=== PATIENT | male | born 1990 | race Caucasian/White ===

== ENCOUNTER 2023-02-16 13:26 | Outpatient (AMB) | payer OTHER, SELFPAY ==
--- NOTE | 2023-02-16 13:28 | MHC.PC.OV ---
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 Intake Note: Patient is a new patient here to establish care Stereotype Molder Required: No Allergies No Known Allergies Allergy (Verified 02/16/23 13:29) Medication List - Last Reconciled 02/16/23 by Ralph Griffin MD esomeprazole magnesium (Nexium) 20 mg PO DAILY Tobacco use date assessed: 02/16/23 Dental Screening Dental Screen Date: 02/16/23 Did you have a dental visit in the last 12 months?: Yes Did you have a dental problem in the last 6 months where you did not have access to dental care?: No Was dental information given to patient?: Patient has dentist HPI 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 [facility] Medical History (Updated 02/16/23 @ 13:56 by Ralph Griffin MD) Scalp laceration Collar bone fracture Surgical History (Updated 02/16/23 @ 13:48 by Ralph Griffin MD) History of facial surgery Family History (Updated 02/16/23 @ 13:50 by Ralph Griffin MD) Father Lung cancer Mother Gallbladder cancer Social History (Updated 02/16/23 @ 13:52 by Ralph Griffin MD) Housing: Apartment Alcohol intake: current Patient Tobacco Use Status: Former Tobacco user Years Smoked: quit 2016 smoker for 8 years 1/2 pack a day service: No Current occupational status: employed Cognitive needs: No Hearing needs: No Vision needs: No Questionnaire Thrive Questionnaire Date Thrive assessed: 02/25/23 I am a: Patient What is your living situation today?: I have a steady place to live Within the past 12 months, did the food you bought not last and you didn't have the money to get more?: Never true Within the past 12 months, did you worry whether your food would run out before you got money to buy more?: Never true Do you have trouble paying for medicines?: No Do you have trouble getting transportation to medical appointments?: No Do you have trouble paying your heating and electricity bill?: No Do you have trouble taking care of your child, family member or friend?: No Do you have trouble with day-to-day activities such as bathing, preparing meals, shopping, managing finances, etc.?: No Are you currently unemployed and looking for a job?: No Are you interested in more education?: No AUDIT C Alcohol Use Questionnaire (AUDIT-C) 1. How often do you have a drink containing alcohol?: Monthly or less 2. How many drinks containing alcohol do you have on a typical day when you are drinking?: 1 or 2 3. How often do you have six or more drinks on one occasion?: Never Total Score: 1 SHAYY-7 AMB Questionnaire SHAYY-7 Date SHAYY - 7 assessed: 02/16/23 Feeling nervous, anxious, or on edge: 0 = Not at all Not being able to stop or control worryin = Not at all Worrying too much about different things: 0 = Not at all Trouble relaxin = Not at all Being so restless that it is hard to sit still: 0 = Not at all Becoming easily annoyed or irritable: 0 = Not at all Feeling afraid as if something awful might happen: 0 = Not at all Total SHAYY-7 score (0-4 normal; 5-9 mild; 10-14 moderate; 15-21 severe): 0 Source: Developed by Drs. Rahul Sidhu, Chioma Weller, Jose Francisco Valencia and colleagues, with an educational jose from [employer]. Review of Systems Const Denies poor appetite and Denies weakness Eyes Denies no additional complaints ENT Reports Normal hearing present, Denies dizziness, Denies nasal congestion, Denies tinnitus and Denies sore throat Card Denies chest pain, Denies syncope, Denies rapid heart rate and Denies dyspnea Resp Denies cough and Denies dyspnea GI Denies change in stool character, Reports constipation, Denies diarrhea, Denies nausea and Denies vomiting Denies dysuria and Denies urinary frequency Neuro Reports Normal hearing present, Denies confusion, Denies dizziness, Denies syncope and Denies weakness Psych Denies confusion Physical exam (Primary Care) Vital Signs: Last Vital Signs Pulse 89 02/16/23 13:29 BP 138/88 02/16/23 13:29 Pulse Ox 99 02/16/23 13:29 Oxygen Delivery Method Room Air 02/16/23 13:29 BMI result Body Mass Index 46.3 Tobacco/Smoking Status: Tobacco use Status Tobacco use date assessed 02/16/23 02/16/23 13:31 Patient Tobacco Use Status Former Tobacco user 02/16/23 13:39 Thrive Assessment: Date of Thrive Assessment Date Thrive assessed 02/25/23 02/16/23 13:31 Const General: No confusion Orientation/consciousness: No confusion HENMT Head: Yes normocephalic Ears: external ears normal and TM's normal bilaterally Face and sinus: Yes normal facial exam Mouth: moist mucous membranes Throat: Yes tonsils normal Eyes Conjunctivae: conjunctivae normal Pupils: Equal, round and reactive pupils present and Pupil accommodation reflex normal Direct Ophthalmoscopy: normal light reflex Neck Neck: No lymphadenopathy Thyroid: Thyroid normal Chest Chest palpation & inspection: normal inspection of the chest Resp Effort & Inspection: normal respiratory effort and no audible wheezes Auscultation: clear to auscultation bilaterally, no crackles, no wheezes and lung sounds not diminished Cardio Rate: regular rate Rhythm: regular rhythm Peripheral pulses: radial pulses present and dorsalis pedis present GI Palpation (GI): no masses Auscultation: normal bowel sounds and normoactive bowel sounds Rectal Exam - Male: Yes deferred Skin General skin exam: no rashes or lesions noted Rashes: no rashes Neuro General: No confusion Cranial nerves: Yes Equal, round and reactive pupils present and Yes Normal hearing present Cognition (Neuro): normal cognition Gait exam (Neuro): Normal gait present Motor exam (neuro): 5/5 motor strength present throughout Deep tendon reflexes (DTR's): Right brachioradialis reflex intensity grade: 2+, Left brachioradialis reflex intensity grade: 2+, Right patellar reflex intensity grade: 2+ and Left patellar reflex intensity grade: 2+ Extrem General: No edema Assessment and Plan Assessment & Plan (1) Annual physical exam: Code(s): Z00.00 - Encounter for general adult medical examination without abnormal findings (2) Obesity: Code(s): E66.9 - Obesity, unspecified Plan: Diet and exercise (3) LFT elevation: Code(s): R79.89 - Other specified abnormal findings of blood chemistry (4) Frequency of micturition: Code(s): R35.0 - Frequency of micturition Orders: Orders Complete Blood Count Auto Diff Today R79.89 - Other specified abnormal findings of blood chemistry Comprehensive Met. Panel Today R79.89 - Other specified abnormal findings of blood chemistry Free T4 (Free Thyroxine) Today R79.89 - Other specified abnormal findings of blood chemistry Lipid Panel Today E78.00 - Pure hypercholesterolemia, unspecified, R79. - Other specified abnormal findings of blood chemistry Hemoglobin A1c Today R35.0 - Frequency of micturition UA w Microscopic Today R35.0 - Frequency of micturition Hepatitis B,C Profile Today R79.89 - Other specified abnormal findings of blood chemistry US abdomen complete Today R79.89 - Other specified abnormal findings of blood chemistry Thyroid Stimulating Hormone Today R79.89 - Other specified abnormal findings of blood chemistry Vitamin B12 and Folate Today R79. - Other specified abnormal findings of blood chemistry Coding Level of Care Code Est Pt Prev Care 18-39y(01600) Diagnoses Annual physical exam Z00.00 Obesity E66.9 LFT elevation R79.89 Frequency of micturition R35.0
[2023-02-16 13:29] VITALS: BP 138/88; PULSE 89; O2SAT 99; BMI 46.3
== END 2023-02-16 14:11 | disposition home or self-care (01) ==
PROVIDERS: PCP Internal Medicine; Visit Provider Internal Medicine
DX: Z00.00 Encounter for general adult medical examination without abnormal findings (principal); E66.9 Obesity, unspecified; R79.89 Other specified abnormal findings of blood chemistry; Z68.42 Body mass index [BMI] 45.0-49.9, adult; R35.0 Frequency of micturition
CPT/HCPCS: 99395

== ENCOUNTER 2023-03-06 09:55 | Outpatient (REF) | payer OTHER, MEDICAID, SELFPAY ==
--- NOTE | ~2023-03-06 | US_ITS ---
EXAMINATION: US ABDOMEN COMPLETE CLINICAL INFORMATION: Other specified abnormal findings of blood chemistry. COMPARISON: None available. TECHNIQUE: Real-time imaging of the abdominal viscera. Technically limited study secondary to body habitus. FINDINGS: PANCREAS: Poorly visualized. ABDOMINAL AORTA: Poorly visualized. INFERIOR VENA CAVA: Visualized portions are normal. LIVER: Increased parenchymal heterogeneity and echogenicity which could be associated with hepatic steatosis or hepatocellular disease and severely limits visualization. Hypoechoic areas within the liver adjacent to the gallbladder may represent areas of focal sparing within a fatty liver. GALLBLADDER: No gallstones. Gallbladder wall thickness of 0.3 cm. COMMON BILE DUCT: Normal in caliber measuring 0.6 cm in diameter. RIGHT KIDNEY: No hydronephrosis. No renal calculi. Limited visualization. The kidney measures 11.1 cm in maximum dimension. LEFT KIDNEY: No hydronephrosis. No renal calculi. Limited visualization. The kidney measures 12.5 cm in maximum dimension. SPLEEN: Normal. The spleen measures 13.0 cm in maximum dimension. FREE FLUID: None. US/US abdomen complete IMPRESSION: Increased parenchymal heterogeneity and echogenicity which could be associated with hepatic steatosis or hepatocellular disease and severely limits visualization. Hypoechoic areas within the liver adjacent to the gallbladder may represent areas of focal sparing within a fatty liver. Severely limited visualization. CT scan or MRI recommended for further evaluation.
[2023-03-06 11:00] LABS: MANUAL DIFF FLAG NO
[2023-03-06 11:22] LABS: Basophils Absolute Auto 0.1 X10*3/uL (0.0-0.2); Basophils Percent Auto 0.8 % (0-2); Eosinophils Absolute Auto 0.1 X10*3/uL (0.0-0.4); Eosinophils Percent Auto 0.8 % (0-4); Hematocrit 45.4 % (42.0-52.0); Hemoglobin 15.8 g/dl (14.0-18.0); Imm Gran Abs Auto 0.01 X10*3/uL (0.00-0.03); Imm Gran Pct Auto 0.1 % (0.0-0.4); Lymphocytes Absolute Auto 2.4 X10*3/uL (1.2-4.9); Lymphocytes Percent Auto 34.2 % (20-40); Mean Corpuscular HGB Conc 34.8 g/dl (31.0-36.0); Mean Corpuscular Hemoglobin 31.4 pg (27.0-33.0); Mean Corpuscular Volume 90.3 fL (80.0-98.0); Mean Platelet Volume 12.1 fL (9.4-12.4); Monocytes Absolute Auto 0.5 X10*3/uL (0.1-1.2); Neutrophils Absolute Auto 4.1 x10*3/uL (2.0-8.3); Neutrophils Percent Auto 57.1 % (45-73); Platelet Count 210 X10*3/uL (160-400); Red Blood Count 5.03 X10*6/uL (4.60-5.80); Red Cell Distribution Width 12.1 % (11.0-16.0); White Blood Count 7.1 X10*3/uL (4.8-10.8)
[2023-03-06 12:07] LABS: Estimated Average Glucose 91 mg/dL; Hemoglobin A1c % 4.8 % (<6.0)
[2023-03-06 12:23] LABS: Alanine Aminotransferase 76 U/L (0-40); Albumin Level 4.5 g/dL (3.5-5.0); Alkaline Phosphatase 62 U/L (39-117); Anion Gap 15 (12-20); Aspartate Amino Transferase 46 U/L (5-37); Bilirubin Total 0.7 mg/dL (0.0-1.0); Blood Urea Nitrogen 12 mg/dL (9-16); Calcium 9.4 mg/dL (8.4-10.2); Carbon Dioxide 24 mmol/L (22-29); Chloride 107 mmol/L (96-108); Cholesterol 110 mg/dL (<200); Estimated Glomerular Filt Rate > 60; Glucose Random 81 mg/dL (60-115); HDL Cholesterol 37 mg/dL (>40); LDL Cholesterol Calculated 63 mg/dL (<100); Potassium 4.3 mmol/L (3.3-5.1); Sodium 142 mmol/L (135-145); Total Protein 7.3 g/dL (6.5-8.0); Triglycerides 52 mg/dL (<150)
[2023-03-06 12:39] LABS: Free T4 (Free Thyroxine) 0.72 ng/dL (0.71-1.85); Thyroid Stimulating Hormone 1.74 uIU/mL (0.32-4.0)
[2023-03-06 12:52] LABS: Vitamin B12 699 pg/mL (200-900)
[2023-03-06 13:57] LABS: Appearance Urine Clear; Color Urine Yellow; Glucose Urine UA Negative (Negative); Leukocyte Esterase Urine Negative (Negative); Nitrite Urine Negative (Negative); Specific Gravity - Urine 1.025 (1.005-1.025); Urine Blood Negative (Negative); Urine Ketones 15 mg/dL (Negative); Urine Protein Negative (Neg-Trace)
[2023-03-06 14:01] LABS: Bacteria Urine None Seen (None Seen); Hyaline Casts Urine 0-2 /LPF (0-2); RBC Urine 0-2 /HPF (0-2); Squamous Epithelial Cell Urine 0-2 /HPF (0-2); WBC Urine 0-5 /HPF (0-5)
[2023-03-09 08:48] LABS: HBS Num1 > 1000.00 mIU/mL (0-7.99); HBc Num1 0.14 S/CO (0.00-0.79); HBsAGNum1 0.38 S/CO (0.00-0.99); Hepatitis B Core Antibody Nonreactive (Nonreactive); Hepatitis B Surface Antigen Negative (Negative); ~HepC Num1 0.07 S/CO (0.00-0.79); ~Hepatitis B Surface Antibody REACTIVE (Nonreactive); ~Hepatitis C Antibody Nonreactive (Nonreactive)
== END 2023-03-06 09:56 | disposition home or self-care (01) ==
LOC: HO.US 09:55
PROVIDERS: PCP Internal Medicine; Visit Provider Internal Medicine
DX: R35.0 Frequency of micturition (principal); R79.89 Other specified abnormal findings of blood chemistry; E78.00 Pure hypercholesterolemia, unspecified
CPT/HCPCS: 36415; 76700; 80053; 80061; 81001; 82607; 82746; 83036; 84439; 84443; 85025; 86704; 86706; 86803; 87340

== ENCOUNTER 2023-03-15 06:28 | Emergency (ER) | payer OTHER, MEDICAID, SELFPAY ==
[2023-03-15 06:30] VITALS: BP 149/96; PULSE 77; RESP 18; TEMP 36.4; O2SAT 98; BMI 46.7
== END 2023-03-15 11:06 | disposition left against medical advice (07) ==
PROVIDERS: Emergency Provider Emergency Medicine
DX: M79.601 Pain in right arm (principal)
CPT/HCPCS: 99281

== ENCOUNTER 2023-06-10 11:01 | Outpatient (AMB) | payer OTHER, SELFPAY ==
[2023-06-10 11:05] VITALS: BP 134/92; PULSE 89; O2SAT 98; BMI 44.6
--- NOTE | 2023-06-10 11:05 | A.OFFPC_ITS ---
Vital Signs 06/10/23 11:05 06/10/23 11:55 Height 5 ft 11 in Weight 320 lb BMI 44.6 BP 134/92 H 120/80 Blood Pressure Location Lt brachial Lt brachial Position Sitting Sitting Pulse 89 Pulse Source Pulse Oximeter Pulse Oximetry (%) 98 Oxygen Delivery Method Room Air Intake Visit Reasons: 3 month f/u Allergies No Known Allergies Allergy (Verified 06/10/23 11:05) Tobacco use date assessed: 06/10/23 Dental Screening Dental Screen Date: 06/10/23 Did you have a dental visit in the last 12 months?: Yes Did you have a dental problem in the last 6 months where you did not have access to dental care?: No Was dental information given to patient?: Patient has dentist HPI 3 month f/u HPI Details 33-year-old obese male with a history of elevated liver function test in frequency coming in for follow-up. Patient was last seen in January 2023. Review of the notes had ultrasound of the abdomen showing hepatic steatosis.. R arm pain since 04/2023, deny fall or trauma- concerned on sleeping in the office . 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 15 lbs [facility] Medical History (Updated 06/10/23 @ 11:45 by Ralph Griffin MD) Scalp laceration Collar bone fracture Surgical History (Updated 02/16/23 @ 13:48 by Ralph Griffin MD) History of facial surgery Family History (Updated 06/10/23 @ 11:06 by Kassandra Rob CMA) Father Lung cancer Mother Gallbladder cancer Social History (Updated 02/16/23 @ 13:52 by Ralph Griffin MD) Housing: Apartment Alcohol intake: current Patient Tobacco Use Status: Former Tobacco user Tobacco use type: Cigarette Years Smoked: quit 2016 smoker for 8 years 1/2 pack a day e-Cigarette/Vaping Use: Never Used Second Hand Smoke Exposure: No service: No Current occupational status: employed Cognitive needs: No Hearing needs: No Vision needs: No Questionnaire PHQ-9 Over the last 2 weeks, how often have you been bothered by any of the following problems? 1. Little interest or pleasure in doing things: not at all 2. Feeling down, depressed, or hopeless: not at all 3. Trouble falling or staying asleep, or sleeping too much: not at all 4. Feeling tired or having little energy: not at all 5. Poor appetite or overeating: not at all 6. Feeling bad about yourself - or that you are a failure or have let yourself or your family down: not at all 7. Trouble concentrating on things, such as reading the newspaper or watching television: not at all 8. Moving or speaking so slowly that other people could have noticed. Or the opposite - being so fidgety or restless that you have been moving around a lot more than usual: not at all 9. Thoughts that you would be better off or of hurting yourself in some way: not at all Total score: 0 Depression Screening Interpretation: Negative Depression Screening Done: Yes Source: Developed by Drs. Rahul Sidhu, Chioma Weller, Jose Francisco Valencia and colleagues, with an educational jose from [employer]. Thrive Questionnaire Date Thrive assessed: 06/10/23 I am a: Patient What is your living situation today?: I have a steady place to live Within the past 12 months, did the food you bought not last and you didn't have the money to get more?: Never true Within the past 12 months, did you worry whether your food would run out before you got money to buy more?: Never true Do you have trouble paying for medicines?: No Do you have trouble getting transportation to medical appointments?: No Do you have trouble paying your heating and electricity bill?: No Do you have trouble taking care of your child, family member or friend?: No Do you have trouble with day-to-day activities such as bathing, preparing meals, shopping, managing finances, etc.?: No Are you currently unemployed and looking for a job?: No Are you interested in more education?: No AUDIT C Alcohol Use Questionnaire (AUDIT-C) 1. How often do you have a drink containing alcohol?: Monthly or less 2. How many drinks containing alcohol do you have on a typical day when you are drinking?: 1 or 2 3. How often do you have six or more drinks on one occasion?: Never Total Score: 1 SHAYY-7 AMB Questionnaire SHAYY-7 Date SHAYY - 7 assessed: 06/10/23 Feeling nervous, anxious, or on edge: 0 = Not at all Not being able to stop or control worryin = Not at all Worrying too much about different things: 0 = Not at all Trouble relaxin = Not at all Being so restless that it is hard to sit still: 0 = Not at all Becoming easily annoyed or irritable: 0 = Not at all Feeling afraid as if something awful might happen: 0 = Not at all Total SHAYY-7 score (0-4 normal; 5-9 mild; 10-14 moderate; 15-21 severe): 0 Source: Developed by Drs. Rahul Sidhu, Chioma Weller, Jose Francisco Valencia and colleagues, with an educational jose from [employer]. Physical exam (Primary Care) Vital Signs: Last Vital Signs Pulse 89 06/10/23 11:05 BP 134/92 H 06/10/23 11:05 Pulse Ox 98 06/10/23 11:05 Oxygen Delivery Method Room Air 06/10/23 11:05 BMI result Body Mass Index 44.6 Tobacco/Smoking Status: Tobacco use Status Tobacco use date assessed 06/10/23 06/10/23 11:11 Patient Tobacco Use Status Former Tobacco user 06/10/23 11:11 Tobacco use type Cigarette 06/10/23 11:11 e-Cigarette/Vaping Use Never Used 06/10/23 11:11 PHQ-9: PHQ-9 Score PHQ-9: Total score 0 06/10/23 11:11 Depression Screening Interpretation: Negative Thrive Assessment: Date of Thrive Assessment Date Thrive assessed 06/10/23 06/10/23 11:11 Const General: alert; No acute distress Eyes Conjunctivae: conjunctivae normal Resp Auscultation: clear to auscultation bilaterally Cardio Rate: regular rate Rhythm: regular rhythm GI Inspection: Yes normal to inspection Extrem General: Yes normal to inspection and No edema Assessment and Plan Assessment & Plan (1) Obesity: Code(s): E66.9 - Obesity, unspecified Plan: Diet and exercise (2) Hepatic steatosis: Code(s): K76.0 - Fatty (change of) liver, not elsewhere classified Plan: Low-fat diet and exercise (3) GERD (gastroesophageal reflux disease): Code(s): K21.9 - Gastro-esophageal reflux disease without esophagitis Plan: Avoid the foods that causes that usually spicy foods, tomato products, juices, coffee, soda and foods that your sensitive to. After eating do not lie down, allow 3-4 hours before in lie down. And keep the head of bed above 30 degrees to avoid the acid from going up. Coding Level of Care Code Est Pt Level 4 (92107) Diagnoses Obesity E66.9 Hepatic steatosis K76.0 GERD (gastroesophageal reflux disease) K21.9
[2023-06-10 11:55] VITALS: BP 120/80
== END 2023-06-10 11:59 | disposition home or self-care (01) ==
PROVIDERS: PCP Internal Medicine; Visit Provider Internal Medicine
DX: K76.0 Fatty (change of) liver, not elsewhere classified (principal); K21.9 Gastro-esophageal reflux disease without esophagitis; E66.9 Obesity, unspecified; Z68.41 Body mass index [BMI] 40.0-44.9, adult
CPT/HCPCS: 99214

== ENCOUNTER 2023-07-29 13:31 | Outpatient (AMB) | payer OTHER, SELFPAY ==
--- NOTE | 2023-07-29 13:48 | MHC.PC.OV ---
Vital Signs 07/29/23 13:50 Height 5 ft 11 in Weight 312 lb 4 oz BMI 43.5 BP 120/80 Blood Pressure Location Lt brachial Position Sitting Pulse 87 Pulse Source Pulse Oximeter Pulse Oximetry (%) 98 Oxygen Delivery Method Room Air Intake Visit Reasons: ear pain,congestion Intake Note: Patient is here today for left ear pain, cough and chest congestion on started 2 days ago. OTC is not help with chest congestion. Appian Bpm Developer Required: No Communications Scientist: Not Required per policy Accompanied by: Self / Same As Patient Allergies No Known Allergies Allergy (Verified 07/29/23 14:17) Medication List - Last Reconciled 07/29/23 by Ruddy Qureshi MD esomeprazole magnesium (Nexium) 20 mg PO DAILY hydroxyzine HCl 50 mg PO BEDTIME PRN Tobacco use date assessed: 07/29/23 Dental Screening Dental Screen Date: 07/29/23 Did you have a dental visit in the last 12 months?: Yes Did you have a dental problem in the last 6 months where you did not have access to dental care?: No Was dental information given to patient?: Patient has dentist HPI ear pain,congestion HPI Details Patient presents for a sick visit. Reporting symptoms of sinus congestion, sore throat and difficulty swallowing. Low-grade fever. No family member is sick. No recent travel. Patient reports symptoms of malaise and fatigue. [facility] Medical History (Updated 06/10/23 @ 11:45 by Ralph Griffin MD) Scalp laceration Collar bone fracture Surgical History History of facial surgery Family History Father Lung cancer Mother Gallbladder cancer Social History Housing: Apartment Alcohol intake: current Patient Tobacco Use Status: Former Tobacco user Tobacco use type: Cigarette Years Smoked: quit 2016 smoker for 8 years 1/2 pack a day e-Cigarette/Vaping Use: Never Used Second Hand Smoke Exposure: No service: No Current occupational status: employed Cognitive needs: No Hearing needs: No Vision needs: No Questionnaire Thrive Questionnaire Date Thrive assessed: 06/10/23 SHAYY-7 AMB Questionnaire SHAYY-7 Date SHAYY - 7 assessed: 06/10/23 Source: Developed by Drs. Rahul Sidhu, Chioma Weller, Jose Francisco Valencia and colleagues, with an educational jose from [email or web address]. Physical exam (Primary Care) Vital Signs: Last Vital Signs Pulse 87 07/29/23 13:50 BP 120/80 07/29/23 13:50 Pulse Ox 98 07/29/23 13:50 Oxygen Delivery Method Room Air 07/29/23 13:50 BMI result Body Mass Index 43.5 Tobacco/Smoking Status: Tobacco use Status Tobacco use date assessed 07/29/23 07/29/23 13:58 Patient Tobacco Use Status Former Tobacco user 07/29/23 13:58 Tobacco use type Cigarette 07/29/23 13:58 e-Cigarette/Vaping Use Never Used 07/29/23 13:58 Thrive Assessment: Date of Thrive Assessment Date Thrive assessed 06/10/23 07/29/23 13:58 Const General: cooperative and healthy appearing Nutritional Appearance: well nourished Orientation/consciousness: patient oriented x3 Limitations: no limitations HENMT Head: Yes normal to inspection Eyes General: appearance normal, both eyes and all related structures Neck Neck: Yes normal visual inspection Chest Chest palpation & inspection: normal palpation of entire chest wall Resp Effort & Inspection: normal respiratory effort Neuro General: patient oriented x3 Assessment and Plan Assessment & Plan (1) Upper respiratory tract infection: Code(s): J06.9 - Acute upper respiratory infection, unspecified Plan: Antibiotics ordered. Increase fluid intake. Tylenol for aches and pains. If symptoms worsen, follow-up here for a recheck. Coding Level of Care Code Est Pt Level 3 (69967) Diagnoses Upper respiratory tract infection J06.9
[2023-07-29 13:50] VITALS: BP 120/80; PULSE 87; O2SAT 98; BMI 43.5
== END 2023-07-29 16:30 | disposition home or self-care (01) ==
PROVIDERS: PCP Internal Medicine; Visit Provider Internal Medicine
DX: J06.9 Acute upper respiratory infection, unspecified (principal)
CPT/HCPCS: 99213

== ENCOUNTER 2023-09-21 13:03 | Outpatient (AMB) | payer OTHER, SELFPAY ==
[2023-09-21 13:05] VITALS: BP 118/72; PULSE 67; O2SAT 98; BMI 43.8
--- NOTE | 2023-09-21 13:05 | MHC.PC.OV ---
Vital Signs 09/21/23 13:05 Height 5 ft 11 in Weight 314 lb BMI 43.8 BP 118/72 Blood Pressure Location Lt brachial Position Sitting Pulse 67 Pulse Source Pulse Oximeter Pulse Oximetry (%) 98 Oxygen Delivery Method Room Air Intake Visit Reasons: stress hives Manager Culture Required: No Allergies No Known Allergies Allergy (Verified 09/21/23 13:05) Tobacco use date assessed: 09/21/23 Dental Screening Dental Screen Date: 07/29/23 HPI stress hives HPI Details 33-year-old obese male with hepatic steatosis in GERD last seen in May 2023 coming in for acute problem. Review of the notes in July 2023 had nasal congestion treated as upper respiratory tract infection. February 2023 last blood work- jun- had bumps thigh , chest arm leg, urgent center was told at [facility]. 2 weeks later- after an argument - had another rash. showed erythematous rash back and arms [facility] Medical History (Updated 09/21/23 @ 13:53 by Ralph Griffin MD) Scalp laceration Collar bone fracture Surgical History History of facial surgery Family History Father Lung cancer Mother Gallbladder cancer Social History Housing: Apartment Alcohol intake: current Patient Tobacco Use Status: Former Tobacco user Tobacco use type: Cigarette Years Smoked: quit 2016 smoker for 8 years 1/2 pack a day e-Cigarette/Vaping Use: Never Used Second Hand Smoke Exposure: No service: No Current occupational status: employed Cognitive needs: No Hearing needs: No Vision needs: No Questionnaire Thrive Questionnaire Date Thrive assessed: 06/10/23 AUDIT C Alcohol Use Questionnaire (AUDIT-C) 1. How often do you have a drink containing alcohol?: Monthly or less 2. How many drinks containing alcohol do you have on a typical day when you are drinking?: 1 or 2 3. How often do you have six or more drinks on one occasion?: Never Total Score: 1 SHAYY-7 AMB Questionnaire SHAYY-7 Date SHAYY - 7 assessed: 06/10/23 Source: Developed by Drs. Rahul Sidhu, Chioma BJose Francisco Galeas and colleagues, with an educational jose from [employer]. Physical exam (Primary Care) Vital Signs: Last Vital Signs Pulse 67 09/21/23 13:05 BP 118/72 09/21/23 13:05 Pulse Ox 98 09/21/23 13:05 Oxygen Delivery Method Room Air 09/21/23 13:05 BMI result Body Mass Index 43.8 Tobacco/Smoking Status: Tobacco use Status Tobacco use date assessed 09/21/23 09/21/23 13:05 Patient Tobacco Use Status Former Tobacco user 09/21/23 13:05 Tobacco use type Cigarette 09/21/23 13:05 e-Cigarette/Vaping Use Never Used 09/21/23 13:05 Thrive Assessment: Date of Thrive Assessment Date Thrive assessed 06/10/23 09/21/23 13:05 Const General: alert; No acute distress Eyes Conjunctivae: conjunctivae normal Resp Auscultation: clear to auscultation bilaterally Cardio Rate: regular rate Rhythm: regular rhythm GI Inspection: Yes normal to inspection Extrem General: Yes normal to inspection and No edema Assessment and Plan Assessment & Plan (1) GERD (gastroesophageal reflux disease): Code(s): K21.9 - Gastro-esophageal reflux disease without esophagitis Plan: Avoid the foods that causes that usually spicy foods, tomato products, juices, coffee, soda and foods that your sensitive to. After eating do not lie down, allow 3-4 hours before in lie down. And keep the head of bed above 30 degrees to avoid the acid from going up. (2) Hepatic steatosis: Code(s): K76.0 - Fatty (change of) liver, not elsewhere classified Plan: Low-fat diet and exercise (3) Obesity: Code(s): E66.9 - Obesity, unspecified Plan: Diet and exercise (4) Urticaria: Code(s): L50.9 - Urticaria, unspecified Plan: dermatology referral and zyrtec sent in - dicussed about drowsiness side effect (5) Hearing deficit: Code(s): H91.90 - Unspecified hearing loss, unspecified ear Plan: advised hearing test Orders: Referrals Dermatology Referral L50.9 - Urticaria, unspecified Speech and Hearing Referral H91.90 - Unspecified hearing loss, unspecified ear Medications: New cetirizine (Zyrtec) 10 mg PO DAILY PRN 30 tabs 3RF allergy symptoms L50.9 - Urticaria, unspecified Coding Level of Care Code Est Pt Level 4 (17942) Diagnoses GERD (gastroesophageal reflux disease) K21.9 Hepatic steatosis K76.0 Obesity E66.9 Urticaria L50.9 Hearing deficit H91.90
== END 2023-09-21 13:55 | disposition home or self-care (01) ==
PROVIDERS: PCP Internal Medicine; Visit Provider Internal Medicine
DX: K21.9 Gastro-esophageal reflux disease without esophagitis (principal); K76.0 Fatty (change of) liver, not elsewhere classified; Z68.41 Body mass index [BMI] 40.0-44.9, adult; E66.9 Obesity, unspecified; L50.9 Urticaria, unspecified
CPT/HCPCS: 99214

== ENCOUNTER 2023-10-13 09:47 | Outpatient (AMB) | payer OTHER, SELFPAY ==
[2023-10-13 09:50] VITALS: BP 134/76; PULSE 80; O2SAT 98; BMI 43.6
--- NOTE | 2023-10-13 09:50 | MHC.PC.OV ---
Vital Signs 10/13/23 09:50 Height 5 ft 11 in Weight 313 lb BMI 43.6 BP 134/76 Blood Pressure Location Lt brachial Position Sitting Pulse 80 Pulse Source Pulse Oximeter Pulse Oximetry (%) 98 Oxygen Delivery Method Room Air Intake Visit Reasons: Shoulder pain Allergies No Known Allergies Allergy (Verified 10/13/23 09:50) Medication List - Last Reconciled 10/13/23 by Ralph Griffin MD cetirizine (Zyrtec) 10 mg PO DAILY PRN esomeprazole magnesium (Nexium) 20 mg PO DAILY hydroxyzine HCl 50 mg PO BEDTIME PRN Tobacco use date assessed: 09/21/23 Dental Screening Dental Screen Date: 07/29/23 HPI HPI Comments History of Present Illness Details 33-YEAR-OLD MORBIDLY OBESE MALE WITH HEPATIC STEATOSIS GERD LAST SEEN 09/21/2023. PATIENT IS ON ACUTE PROBLEM. L shoulder pain hx of fracture 16 years old (2002) has seen ortho 2008 and was told eventually need procedure. Patient continuous and started 6 weeks ago [facility] Medical History (Updated 10/13/23 @ 10:12 by Ralph Griffin MD) Scalp laceration Collar bone fracture Surgical History History of facial surgery Family History Father Lung cancer Mother Gallbladder cancer Social History Housing: Apartment Alcohol intake: current Patient Tobacco Use Status: Former Tobacco user Tobacco use type: Cigarette Years Smoked: quit 2016 smoker for 8 years 1/2 pack a day e-Cigarette/Vaping Use: Never Used Second Hand Smoke Exposure: No service: No Current occupational status: employed Cognitive needs: No Hearing needs: No Vision needs: No Questionnaire PHQ-9 Over the last 2 weeks, how often have you been bothered by any of the following problems? 1. Little interest or pleasure in doing things: not at all 2. Feeling down, depressed, or hopeless: not at all 3. Trouble falling or staying asleep, or sleeping too much: not at all 4. Feeling tired or having little energy: not at all 5. Poor appetite or overeating: not at all 6. Feeling bad about yourself - or that you are a failure or have let yourself or your family down: not at all 7. Trouble concentrating on things, such as reading the newspaper or watching television: not at all 8. Moving or speaking so slowly that other people could have noticed. Or the opposite - being so fidgety or restless that you have been moving around a lot more than usual: not at all 9. Thoughts that you would be better off or of hurting yourself in some way: not at all Total score: 0 Depression Screening Interpretation: Negative Depression Screening Done: Yes Source: Developed by Drs. Rahul Sidhu, Chioma Weller, Jose Francisco Valencia and colleagues, with an educational jose from [employer]. Thrive Questionnaire Date Thrive assessed: 06/10/23 AUDIT C Alcohol Use Questionnaire (AUDIT-C) 1. How often do you have a drink containing alcohol?: Monthly or less 2. How many drinks containing alcohol do you have on a typical day when you are drinking?: 1 or 2 3. How often do you have six or more drinks on one occasion?: Never Total Score: 1 SHAYY-7 AMB Questionnaire SHAYY-7 Date SHAYY - 7 assessed: 06/10/23 Source: Developed by Drs. Rahul Sidhu, Chioma Weller, Jose Francisco Valencia and colleagues, with an educational jose from [employer]. Physical exam (Primary Care) Vital Signs: Last Vital Signs Pulse 80 10/13/23 09:50 BP 134/76 10/13/23 09:50 Pulse Ox 98 10/13/23 09:50 Oxygen Delivery Method Room Air 10/13/23 09:50 BMI result Body Mass Index 43.6 Tobacco/Smoking Status: Tobacco use Status Tobacco use date assessed 09/21/23 10/13/23 09:57 Patient Tobacco Use Status Former Tobacco user 10/13/23 09:57 Tobacco use type Cigarette 10/13/23 09:57 e-Cigarette/Vaping Use Never Used 10/13/23 09:57 PHQ-9: PHQ-9 Score PHQ-9: Total score 0 10/13/23 09:57 Depression Screening Interpretation: Negative Thrive Assessment: Date of Thrive Assessment Date Thrive assessed 06/10/23 10/13/23 09:57 Const General: alert; No acute distress Eyes Conjunctivae: conjunctivae normal Resp Auscultation: clear to auscultation bilaterally Cardio Rate: regular rate Rhythm: regular rhythm GI Inspection: Yes normal to inspection Extrem General: Yes normal to inspection and No edema Assessment and Plan Assessment & Plan (1) Left shoulder pain: Code(s): M25.512 - Pain in left shoulder Plan: xr requested. Patient states has had this problem for multiple years post trauma and has been told the need for surgery. (2) Cough: Code(s): R05.9 - Cough, unspecified Plan: Concern about asthma pulmonary function test requested albuterol inhaler sent , chest xray requested (3) Obesity: Code(s): E66.9 - Obesity, unspecified Plan: diet and exercise Orders: Orders PFT pulmonary function test Today R05.9 - Cough, unspecified XR shoulder LT min 2V Today M25.512 - Pain in left shoulder XR chest 2V Today R05.9 - Cough, unspecified Medications: New albuterol sulfate 90 mcg/actuation (Proventil HFA) 2 puffs inhalation Q4-6H PRN 8.5 grams 0RF Shortness Of Breath J45.909 - Unspecified asthma, uncomplicated, R05.9 - Cough, unspecified Coding Level of Care Code Est Pt Level 4 (25331) Diagnoses Left shoulder pain M25.512 Cough R05.9 Obesity E66.9
== END 2023-10-13 10:20 | disposition home or self-care (01) ==
PROVIDERS: PCP Internal Medicine; Visit Provider Internal Medicine
DX: M25.512 Pain in left shoulder (principal); R05.9 Cough, unspecified; E66.9 Obesity, unspecified; Z68.41 Body mass index [BMI] 40.0-44.9, adult
CPT/HCPCS: 99214

== ENCOUNTER 2023-10-13 10:35 | Outpatient (REF) | payer OTHER, SELFPAY ==
--- NOTE | ~2023-10-13 | XR_ITS ---
EXAMINATION: XR SHOULDER, LEFT CLINICAL INFORMATION: Pain in left shoulder . COMPARISON: None available. TECHNIQUE: AP external rotation, Grashey, scapular Y, and axillary views of the left shoulder. FINDINGS: A 1.4 cm ossicle is noted along the superior aspect of the acromioclavicular joint. Mild degenerative changes in the acromioclavicular joint. Acromioclavicular and glenohumeral alignment is preserved. No abnormal soft tissue calcifications identified adjacent to the humeral head to suggest rotator cuff pathology. XR/XR shoulder LT min 2V IMPRESSION: A 1.4 cm ossicle is noted along the superior aspect of the acromioclavicular joint. Mild degenerative changes in the acromioclavicular joint.
--- NOTE | ~2023-10-13 | XR_ITS ---
EXAMINATION: XR CHEST CLINICAL INFORMATION: Cough unspecified. COMPARISON: None available. TECHNIQUE: 3 views of the chest. FINDINGS: Lung volumes are low. Heart size is normal. There is no gross pneumothorax. No pleural effusion. Mild degenerative changes in the thoracic spine. No focal consolidation to suggest pneumonia. Dextroscoliosis of the thoracic spine. XR/XR chest 2V IMPRESSION: No evidence of pneumonia.
== END 2023-10-13 10:36 | disposition home or self-care (01) ==
LOC: HO.XRAY 10:35
PROVIDERS: PCP Internal Medicine; Visit Provider Internal Medicine
DX: M25.512 Pain in left shoulder (principal); R05.9 Cough, unspecified
CPT/HCPCS: 71046; 73030

== ENCOUNTER 2023-10-30 13:58 | Outpatient (REF) | payer OTHER, SELFPAY | END 2023-10-30 13:59 | disposition home or self-care (01) | LOC: HO.SH 13:58 | PROVIDERS: Visit Provider Internal Medicine | DX: Z01.118 Encounter for examination of ears and hearing with other abnormal findings (principal); H93.293 Other abnormal auditory perceptions, bilateral | CPT/HCPCS: 92557; 92567 ==

== ENCOUNTER 2023-12-21 08:53 | Outpatient (AMB) | payer OTHER, MEDICAID, SELFPAY ==
[2023-12-21 09:00] VITALS: BMI 43.6
--- NOTE | 2023-12-21 09:00 | A.OFFVIS_ITS ---
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 Intake Note: Mansoor is a 33 year old left hand dominant male who presents today for a as a new patient for a evaluation of his left shoulder pain. Hx of a clavicle fx about 16 years ago. Patient reports . He states that he has a lump on the lateral aspect of the shoulder, he was told that is calcium build up. 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 The patient was seen by his PCP on 10/13/23 when he reported the pain began six weeks prior to presentation. He reported being evaluated by an Orthopedic office in 2008 and was told he would ?eventually need surgery?. X-rays were ordered. ? ? Patient reported a history of a clavicle fracture in the left shoulder when he was 16, in 2002.? ? [facility] Medical History (Updated 12/21/23 @ 09:21 by Mariann Ley PA-C) Scalp laceration Collar bone fracture Surgical History History of facial surgery Family History Father Lung cancer Mother Gallbladder cancer Social History (Updated 12/21/23 @ 09:08 by Marco A De La Fuente) Housing: Apartment Alcohol intake: current Alcohol intake frequency: holidays/special occasions only Tobacco use type: Cigarette Years Smoked: quit 2016 smoker for 8 years 1/2 pack a day e-Cigarette/Vaping Use: Never Used Second Hand Smoke Exposure: No service: No Current occupational status: employed 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 No ecchymosis, erythema, or edema. Forward flexion to end rand. Abduction lacking about 40 degrees. Able to reach T-12. External rotation to end range. Pain with cross-body reach. 4/5 strength with empty can. Negative drop arm. NVI. Assessment & Plan Assessment & Plan (1) Painful arc syndrome of left shoulder: Code(s): M75.102 - Unspecified rotator cuff tear or rupture of left shoulder, not specified as traumatic Category: Medical Plan Mr. Mathews is a 33-year-old left hand dominant male who presents in the office today, as a new patient, for an evaluation of left shoulder pain. The patient was seen by his PCP on 10/13/23 when he reported the pain began six weeks prior to presentation. He reported being evaluated by an Orthopedic office in 2008 and was told he would ?eventually need surgery?. X-rays were ordered.? ? Patient reported a history of a clavicle fracture in the left shoulder when he was 16, in 2002.?? ? The patient will be referred for an MRI to further evaluate the integrity of the left shoulder. The patient will call the office once the MRI is obtained. Follow-up will be after the MRI is obtained, or sooner if needed. ? ? X-rays of the left shoulder which were obtained while in the office today and were reviewed by me, Mariann Ley PA-C, revealed chronic distal clavicle fracture with loose body near the AC joint. ? ? X-rays of the left shoulder, obtained on 10/13/23, revealed: ? A 1.4 cm ossicle is noted along the superior aspect of the? acromioclavicular joint. Mild degenerative changes in the? acromioclavicular joint.? Orders: Orders shoulder LT w con Today M75.102 - Unspecified rotator cuff tear or rupture of left shoulder, not specified as traumatic Patient Instructions: Scribed by Krissy Fiore medical technologist, for Mariann Ley PA-C on 12/21/2023 at 8:56 am, EST.? Coding Level of Care Code New Pt Level 4 (11873) Diagnoses Painful arc syndrome of left shoulder M75.102
== END 2023-12-21 10:07 | disposition home or self-care (01) ==
PROVIDERS: PCP Internal Medicine; Visit Provider Physician Assistant
DX: M75.102 Unspecified rotator cuff tear or rupture of left shoulder, not specified as traumatic (principal); S42.002A Fracture of unspecified part of left clavicle, initial encounter for closed fracture
CPT/HCPCS: 99203

== ENCOUNTER → 2023-12-21 08:53 | Outpatient (BNVA) | payer OTHER, SELFPAY | PROVIDERS: PCP Internal Medicine; Visit Provider Physician Assistant ==

== ENCOUNTER 2024-02-18 11:25 | Outpatient (AMB) | payer OTHER, SELFPAY ==
--- NOTE | 2024-02-18 11:26 | A.OFFPC_ITS ---
Vital Signs 02/18/24 11:28 02/18/24 11:50 Height 5 ft 11 in Weight 313 lb BMI 43.6 BP 138/90 H 130/90 H Blood Pressure Location Lt brachial Lt brachial Position Sitting Sitting Intake Visit Reasons: PE Intake Note: Patient here for a physical exam Car Pre Cooler Required: No Accompanied by: Self / Same As Patient Allergies No Known Allergies Allergy (Verified 02/18/24 11:29) Medication List - Last Reconciled 02/18/24 by Ralph Griffin MD albuterol sulfate 90 mcg/actuation (Proventil HFA) 2 puffs inhalation Q4-6H PRN cetirizine (Zyrtec) 10 mg PO DAILY PRN esomeprazole magnesium (Nexium) 20 mg PO DAILY Tobacco use date assessed: 09/21/23 Dental Screening Dental Screen Date: 02/18/24 Did you have a dental visit in the last 12 months?: Yes Did you have a dental problem in the last 6 months where you did not have access to dental care?: No Was dental information given to patient?: Patient has dentist HPI PE HPI Details 33-year-old morbidly obese male with fat ty liver/hepatic steatosis GERD coming in for physical exam last seen in September for left shoulder pain. Patient had left shoulder pain and was sent to orthopedics diagnosis of painful arc syndrome of the left shoulder advised MRI x-rays done showing history of distal clavicular fracture with loose body near the AC joint. With 1.4 cm ossicle in the superior aspect of the acromioclavicular joint, mild degenerative changes in the acromioclavicular joint. hearing problem and was advised to see ENT. Patient had a hearing deficit and was advised to get the ENT referral. 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 [facility] Medical History (Updated 02/18/24 @ 12:08 by Ralph Griffin MD) Obesity LFT elevation Scalp laceration Collar bone fracture Surgical History History of facial surgery Family History Father Lung cancer Mother Gallbladder cancer Social History (Updated 02/18/24 @ 11:57 by Ralph Griffin MD) Housing: Apartment Alcohol intake: current Alcohol intake frequency: holidays/special occasions only Comment: once Q 3 months, 6 months Patient Tobacco Use Status: Former Tobacco user Tobacco use type: Cigarette Years Smoked: quit 2016 smoker for 8 years 1/2 pack a day NO cigarettes 2014. 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 1. Little interest or pleasure in doing things: not at all 2. Feeling down, depressed, or hopeless: not at all 3. Trouble falling or staying asleep, or sleeping too much: not at all 4. Feeling tired or having little energy: not at all 5. Poor appetite or overeating: not at all 6. Feeling bad about yourself - or that you are a failure or have let yourself or your family down: not at all 7. Trouble concentrating on things, such as reading the newspaper or watching television: not at all 8. Moving or speaking so slowly that other people could have noticed. Or the opposite - being so fidgety or restless that you have been moving around a lot more than usual: not at all 9. Thoughts that you would be better off or of hurting yourself in some way: not at all Total score: 0 Depression Screening Interpretation: Negative Depression Screening Done: Yes Source: Developed by Drs. Rahul Sidhu, Chioma Weller, Jose Francisco Valencia and colleagues, with an educational jose from [employer]. Thrive Questionnaire Date Thrive assessed: 02/18/24 I am a: Patient What is your living situation today?: I have a steady place to live Within the past 12 months, did the food you bought not last and you didn't have the money to get more?: Never true Within the past 12 months, did you worry whether your food would run out before you got money to buy more?: Never true Do you have trouble paying for medicines?: No Do you have trouble getting transportation to medical appointments?: No Do you have trouble paying your heating and electricity bill?: No Do you have trouble taking care of your child, family member or friend?: No Do you have trouble with day-to-day activities such as bathing, preparing meals, shopping, managing finances, etc.?: No Are you currently unemployed and looking for a job?: No Are you interested in more education?: No Please select the resources that you would like help with: None Currently or been in a relationship where the following occur: No concerns reported THRIVE Score: 0 AUDIT C Alcohol Use Questionnaire (AUDIT-C) 1. How often do you have a drink containing alcohol?: Monthly or less 2. How many drinks containing alcohol do you have on a typical day when you are drinking?: 3 or 4 3. How often do you have six or more drinks on one occasion?: Never Total Score: 2 SHAYY-7 AMB Questionnaire SHAYY-7 Date SHAYY - 7 assessed: 02/18/24 Feeling nervous, anxious, or on edge: 0 = Not at all Not being able to stop or control worryin = Not at all Worrying too much about different things: 0 = Not at all Trouble relaxin = Not at all Being so restless that it is hard to sit still: 0 = Not at all Becoming easily annoyed or irritable: 0 = Not at all Feeling afraid as if something awful might happen: 0 = Not at all Total SHAYY-7 score (0-4 normal; 5-9 mild; 10-14 moderate; 15-21 severe): 0 Source: Developed by Drs. Rahul Sidhu, Chioma Weller, Jose Francisco Valencia and colleagues, with an educational jose from [employer]. Review of Systems Const Denies poor appetite and Denies weakness Eyes Denies no additional complaints ENT Reports Normal hearing present, Denies dizziness, Denies nasal congestion, Denies tinnitus and Denies sore throat Card Denies chest pain, Denies syncope, Denies rapid heart rate and Denies dyspnea Resp Denies cough and Denies dyspnea GI Denies change in stool character, Reports constipation, Denies diarrhea, Denies nausea and Denies vomiting Denies dysuria and Denies urinary frequency Neuro Reports Normal hearing present, Denies confusion, Denies dizziness, Denies syncope and Denies weakness Psych Denies confusion Physical exam (Primary Care) Vital Signs: Last Vital Signs BP 138/90 H 09/26/24 11:28 BMI result Body Mass Index 43.6 Tobacco/Smoking Status: Tobacco use Status Tobacco use date assessed 09/21/23 02/18/24 11:28 Patient Tobacco Use Status Former Tobacco user 02/18/24 11:33 Tobacco use type Cigarette 02/18/24 11:28 e-Cigarette/Vaping Use Never Used 02/18/24 11:28 PHQ-9: PHQ-9 Score PHQ-9: Total score 0 02/18/24 11:33 Depression Screening Interpretation: Negative Thrive Assessment: Date of Thrive Assessment Date Thrive assessed 02/18/24 02/18/24 11:33 Currently or been in a relationship where the following occur: No concerns reported Const General: No confusion Orientation/consciousness: No confusion HENMT Head: Yes normocephalic Ears: external ears normal and TM's normal bilaterally Face and sinus: Yes normal facial exam Mouth: moist mucous membranes Throat: Yes tonsils normal Eyes Conjunctivae: conjunctivae normal Pupils: Equal, round and reactive pupils present and Pupil accommodation reflex normal Direct Ophthalmoscopy: normal light reflex Neck Neck: No lymphadenopathy Thyroid: Thyroid normal Chest Chest palpation & inspection: normal inspection of the chest Resp Effort & Inspection: normal respiratory effort and no audible wheezes Auscultation: clear to auscultation bilaterally, no crackles, no wheezes and lung sounds not diminished Cardio Rate: regular rate Rhythm: regular rhythm Peripheral pulses: radial pulses present and dorsalis pedis present GI Palpation (GI): no masses Auscultation: normal bowel sounds and normoactive bowel sounds Rectal Exam - Male: Yes deferred Skin General skin exam: no rashes or lesions noted Rashes: no rashes Neuro General: No confusion Cranial nerves: Yes Equal, round and reactive pupils present and Yes Normal hearing present Cognition (Neuro): normal cognition Gait exam (Neuro): Normal gait present Motor exam (neuro): 5/5 motor strength present throughout Deep tendon reflexes (DTR's): Right brachioradialis reflex intensity grade: 2+, Left brachioradialis reflex intensity grade: 2+, Right patellar reflex intensity grade: 2+ and Left patellar reflex intensity grade: 2+ Extrem General: No edema Assessment and Plan Assessment & Plan (1) Annual physical exam: Code(s): Z00.00 - Encounter for general adult medical examination without abnormal findings Plan: Patient is advised to eat healthy, keep well hydrated, keep active and have adequate sleep. (2) Morbid obesity: Code(s): E66.01 - Morbid (severe) obesity due to excess calories Plan: Diet and exercise (3) Hepatic steatosis: Code(s): K76.0 - Fatty (change of) liver, not elsewhere classified Plan: Low-fat diet and exercise (4) Painful arc syndrome of left shoulder: Code(s): M75.102 - Unspecified rotator cuff tear or rupture of left shoulder, not specified as traumatic Plan: Patient was seen by ortho and advised MRI but decline by Insurance (5) GERD (gastroesophageal reflux disease): Code(s): K21.9 - Gastro-esophageal reflux disease without esophagitis Plan: Avoid the foods that causes that usually spicy foods, tomato products, juices, coffee, soda and foods that your sensitive to. After eating do not lie down, allow 3-4 hours before in lie down. And keep the head of bed above 30 degrees to avoid the acid from going up. (6) Blood pressure elevated without history of HTN: Code(s): R03.0 - Elevated blood-pressure reading, without diagnosis of hypertension Plan: monitor BP. admits has not slept and drank celsius (7) Cough: Code(s): R05.9 - Cough, unspecified Plan: PFT testing soon (8) Hearing deficit: Code(s): H91.90 - Unspecified hearing loss, unspecified ear Plan: Patient was advised to be referred to ear nose and throat (9) Hypersomnia: Code(s): G47.10 - Hypersomnia, unspecified Plan: Sleep study requested Orders: Orders RT home sleep study Today G47.10 - Hypersomnia, unspecified Referrals Ear/Nose/Throat Referral H91.90 - Unspecified hearing loss, unspecified ear Coding Level of Care Code Est Pt Prev Care 18-39y(22939) Diagnoses Annual physical exam Z00.00 Morbid obesity E66.01 Hepatic steatosis K76.0 Painful arc syndrome of left shoulder M75.102 GERD (gastroesophageal reflux disease) K21.9 Blood pressure elevated without history of HTN R03.0 Cough R05.9 Hearing deficit H91.90 Hypersomnia G47.10
[2024-02-18 11:28] VITALS: BP 138/90; BMI 43.6
[2024-02-18 11:50] VITALS: BP 130/90
== END 2024-02-18 12:16 | disposition home or self-care (01) ==
PROVIDERS: PCP Internal Medicine; Visit Provider Internal Medicine
DX: Z00.00 Encounter for general adult medical examination without abnormal findings (principal); E66.01 Morbid (severe) obesity due to excess calories; Z68.41 Body mass index [BMI] 40.0-44.9, adult; K76.0 Fatty (change of) liver, not elsewhere classified; M75.102 Unspecified rotator cuff tear or rupture of left shoulder, not specified as traumatic; K21.9 Gastro-esophageal reflux disease without esophagitis; R03.0 Elevated blood-pressure reading, without diagnosis of hypertension; R05.9 Cough, unspecified; H91.90 Unspecified hearing loss, unspecified ear; G47.10 Hypersomnia, unspecified

== ENCOUNTER → 2024-02-18 11:25 | Outpatient (BNVA) | payer OTHER, SELFPAY | PROVIDERS: PCP Internal Medicine; Visit Provider Internal Medicine | DX: Z00.00 Encounter for general adult medical examination without abnormal findings (principal); E66.01 Morbid (severe) obesity due to excess calories; Z68.41 Body mass index [BMI] 40.0-44.9, adult; K76.0 Fatty (change of) liver, not elsewhere classified; M75.102 Unspecified rotator cuff tear or rupture of left shoulder, not specified as traumatic; K21.9 Gastro-esophageal reflux disease without esophagitis; R03.0 Elevated blood-pressure reading, without diagnosis of hypertension; R05.9 Cough, unspecified; H91.90 Unspecified hearing loss, unspecified ear; G47.10 Hypersomnia, unspecified | CPT/HCPCS: 96127 ==

== ENCOUNTER → 2024-03-03 10:01 | Outpatient (BNVA) | payer OTHER, SELFPAY | PROVIDERS: PCP Internal Medicine ==

== ENCOUNTER 2024-03-30 11:00 | Outpatient (RCR) | payer OTHER, MEDICAID, SELFPAY ==
--- NOTE | 2024-02-18 13:53 | MHC.PT.EP ---
[facility] [place] Office [place] Office [place] Office [address] [phone] F: [phone] F: [phone] F: [phone] F: [phone] Physical Therapy Plan of Care Date of Evaluation: 02/18/24 Date of Surgery: Diagnosis: L shoulder pain Assessment: 33 y/o L-hand dominant male referred to PT with unspecified RTC tear or rupture of left shoulder, not specified as traumatic. Of note, he fractured L clavicle in 2005 and received no care for it at the time. He has had progress shoulder pain, decreased ROM and strength since this fracture. Most recent X-ray shows A 1.4 cm ossicle is noted along the superior aspect of the acromioclavicular joint. 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 Examination shows decreased L shoulder ROM, decreased strength, pain, mild atrophy supraspinatus fossa, and decreased pec length. Recommend PT 2x/week for 5-6 weeks to address impairments, implement HEP, and optimize functional mobility. Frequency and Duration: The patient will be seen 2x/week for 6 weeks Short Term Goals: 3 weeks I with HEP Car Washer Goals: 6 weeks I with hEP Demonstrate 120* L shoulder flexion to facilitate reaching overhead Pt will be able to lift > 20# with pain < 3/10 Treatment Plan: Modalities to reduce pain, spasms and effusion. Manual therapy to restore motion and function. Therapeutic exercise to improve strength and flexibility. Neuromuscular re-education for posture and balance. Therapeutic activities to return to functional activities of daily living. Electronically signed by: Mirian Sorto PT Please sign and return to therapist. Thank you for your referral.
--- NOTE | 2024-03-30 11:52 | MHC.PT.DC ---
[facility] [place] Office [place] Office [place] Office [address] [phone] F: [phone] F: [phone] F: [phone] F: [phone] Physical Therapy Discharge Report Diagnosis: L shoulder pain Date of Surgery: Date of Evaluation: 02/18/24 Date of Discharge: 03/30/24 Treatments to Date: 12 Cancellations to Date: 0 No Shows to Date: 0 Discharge Status: Independent with HEP Recommend MD Follow-up Discharge Summary: He continues to reports intermittent sharp L shoulder pain and occasional elbow pain with daily activities. ROM has improved however strength and functional mobility still limited. External rotation continues to be most limited in regards to strength. SPADI 59/80 (IR 51/80) He is I with HEP and recommend pt f/u with MD regarding continued pain. He sees MD 04/05. D/c at this time Electronically signed by: Mirian Sorto PT Please sign and return to therapist. Thank you for your referral.
== END 2024-03-30 11:53 | disposition home or self-care (01) ==
LOC: HO.PT 11:00
PROVIDERS: PCP Internal Medicine; Visit Provider Physician Assistant
DX: M75.102 Unspecified rotator cuff tear or rupture of left shoulder, not specified as traumatic (principal)
CPT/HCPCS: 97110; 97161; 97530

== ENCOUNTER 2024-03-31 09:53 | Outpatient (REF) | payer OTHER, SELFPAY ==
--- NOTE | 2024-03-31 09:57 | PFT_ITS ---
Flows: FEV1: 108 % of predicted at 4.54 L FVC: 102 % of predicted at 5.25 L FEV1/FVC: 86 % Bronchodilator response: Absent Volumes: Total lung capacity: 94 % of predicted at 6.47 L Residual volume: 79 % of predicted at 1.19 L Slow vital capacity: 97 % of predicted at 5.28 L Expiratory reserve volume: 27 % of predicted at 0.43 L Diffusion capacity: Normal Impression: No obstructive or restrictive ventilatory defect. Decreased expiratory reserve volume suggests extrathoracic restriction likely secondary to abdominal obesity. MTDD
[2024-03-31 15:41] VITALS: PULSE 73; RESP 16; O2SAT 98
== END 2024-03-31 09:54 | disposition home or self-care (01) ==
LOC: HO.RESP 09:53
PROVIDERS: PCP Internal Medicine; Visit Provider Internal Medicine
DX: R05.9 Cough, unspecified (principal)
CPT/HCPCS: 94010; 94640; 94727; 94729

== ENCOUNTER → 2024-03-31 09:57 | Outpatient (BNV) | payer OTHER, SELFPAY | PROVIDERS: PCP Internal Medicine; Visit Provider Internal Medicine Pulmonary Disease | DX: R05.9 Cough, unspecified (principal) | CPT/HCPCS: 94060; 94727; 94729 ==

== ENCOUNTER → 2024-04-04 12:43 | Outpatient (REF) | payer OTHER, SELFPAY | LOC: HO.SL 12:43 | PROVIDERS: PCP Internal Medicine; Visit Provider Internal Medicine | DX: G47.10 Hypersomnia, unspecified (principal) | CPT/HCPCS: 95806 ==

== ENCOUNTER → 2024-04-04 12:56 | Outpatient (BNV) | payer OTHER, SELFPAY | PROVIDERS: PCP Internal Medicine; Visit Provider Internal Medicine | DX: G47.33 Obstructive sleep apnea (adult) (pediatric) (principal) | CPT/HCPCS: 95806 ==

== ENCOUNTER 2024-04-05 08:40 | Outpatient (AMB) | payer OTHER, SELFPAY ==
[2024-04-05 08:41] VITALS: BP 148/90; PULSE 67; O2SAT 98; BMI 44.5
--- NOTE | 2024-04-05 08:41 | A.OFFPC_ITS ---
Vital Signs 04/05/24 08:41 Height 5 ft 11 in Weight 319 lb BMI 44.5 BP 148/90 H Blood Pressure Location Rt brachial Position Sitting Pulse 67 Pulse Source Pulse Oximeter Pulse Oximetry (%) 98 Oxygen Delivery Method Room Air Intake Visit Reasons: Vasectomy Multineedle Shirrer Required: No Allergies No Known Allergies Allergy (Verified 04/05/24 08:52) Medication List - Last Reconciled 04/05/24 by Destiny Fleming PA-C albuterol sulfate 90 mcg/actuation (Proventil HFA) 2 puffs inhalation Q4-6H PRN cetirizine (Zyrtec) 10 mg PO DAILY PRN esomeprazole magnesium (Nexium) 20 mg PO DAILY Tobacco use date assessed: 09/21/23 Dental Screening Dental Screen Date: 02/18/24 HPI Vasectomy HPI Details 34-year-old morbidly obese male with fat ty liver/hepatic steatosis GERD coming in for acute problem. Patient has been having left shoulder pain for several years starting after an injury in his 20s. He states he has been having a lot of pain in the left shoulder she believes to be responsible for the elevation in blood pressure. He is here for referral for vasectomy. [facility] Medical History (Updated 04/05/24 @ 09:00 by Destiny Fleming PA-C) Obesity LFT elevation Scalp laceration Collar bone fracture Surgical History History of facial surgery Family History Father Lung cancer Mother Gallbladder cancer Social History (Updated 02/18/24 @ 11:57 by Ralph Griffin MD) Housing: Apartment Alcohol intake: current Alcohol intake frequency: holidays/special occasions only Comment: once Q 3 months, 6 months Patient Tobacco Use Status: Former Tobacco user Tobacco use type: Cigarette Years Smoked: quit 2016 smoker for 8 years 1/2 pack a day NO cigarettes 2014. 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 Current occupational exposures/hazards: No Cognitive needs: No Hearing needs: No Vision needs: No Questionnaire Thrive Questionnaire Date Thrive assessed: 02/18/24 I am a: Patient What is your living situation today?: I have a steady place to live Within the past 12 months, did the food you bought not last and you didn't have the money to get more?: Never true Within the past 12 months, did you worry whether your food would run out before you got money to buy more?: Never true Do you have trouble paying for medicines?: No Do you have trouble getting transportation to medical appointments?: No Do you have trouble paying your heating and electricity bill?: No Do you have trouble taking care of your child, family member or friend?: No Do you have trouble with day-to-day activities such as bathing, preparing meals, shopping, managing finances, etc.?: No Are you currently unemployed and looking for a job?: No Are you interested in more education?: No Please select the resources that you would like help with: None Currently or been in a relationship where the following occur: No concerns reported THRIVE Score: 0 AUDIT C Alcohol Use Questionnaire (AUDIT-C) 1. How often do you have a drink containing alcohol?: Monthly or less 2. How many drinks containing alcohol do you have on a typical day when you are drinking?: 3 or 4 3. How often do you have six or more drinks on one occasion?: Never Total Score: 2 SHAYY-7 AMB Questionnaire SHAYY-7 Date SHAYY - 7 assessed: 02/18/24 Source: Developed by Drs. Rahul Sidhu, Chioma Weller, Jose Francisco Valencia and colleagues, with an educational jose from [employer]. Review of Systems Const Denies chills and Denies fever(s) Eyes Reports no additional complaints ENT Reports no additional complaints Card Denies chest pain and Denies dyspnea Resp Denies dyspnea GI Reports no additional complaints Reports no additional complaints Musc Details: Left shoulder pain Physical exam (Primary Care) Vital Signs: Last Vital Signs Pulse 67 04/05/24 08:41 BP 148/90 H 04/05/24 08:41 Pulse Ox 98 04/05/24 08:41 Oxygen Delivery Method Room Air 04/05/24 08:41 BMI result Body Mass Index 44.5 Tobacco/Smoking Status: Tobacco use Status Tobacco use date assessed 09/21/23 04/05/24 08:42 Patient Tobacco Use Status Former Tobacco user 04/05/24 08:42 Tobacco use type Cigarette 04/05/24 08:42 e-Cigarette/Vaping Use Never Used 04/05/24 08:42 Thrive Assessment: Date of Thrive Assessment Date Thrive assessed 02/18/24 04/05/24 08:42 Currently or been in a relationship where the following occur: No concerns reported Const General: cooperative, healthy appearing, comfortable and no acute distress Orientation/consciousness: patient oriented x3 HENMT Head: Yes normocephalic Ears: hearing grossly normal bilaterally General nose exam: Normal external nose present Eyes General: appearance normal, both eyes and all related structures Conjunctivae: conjunctivae normal Neck Neck: Yes full ROM and Yes no lymphadenopathy Resp Effort & Inspection: normal respiratory effort Auscultation: clear to auscultation bilaterally, no crackles, no rales, no rhonchi and no wheezes Cardio Rate: regular rate Rhythm: regular rhythm Skin General skin exam: no rashes or lesions noted Neuro General: patient oriented x3 Gait exam (Neuro): Normal gait present Extrem General: Yes normal to inspection, Yes full ROM and No edema Psych Affect: normal affect Attitude: cooperative Insight: Good insight present (Psych) Judgement: Good judgement present (Psych) Coding Level of Care Code Est Pt Level 3 (17167) Diagnoses Vasectomy evaluation Z30.09 Blood pressure elevated without history of HTN R03.0 Morbid obesity E66.01 Assessment & Plan Assessment & Plan (1) Vasectomy evaluation: Code(s): Z30.09 - Encounter for other general counseling and advice on contraception Category: Medical Plan: Patient understands the risks of the procedure. Discussed with patient the blood pressure and blood sugars need to be under good control prior to the procedure. Referral placed to Urology. (2) Blood pressure elevated without history of HTN: Code(s): R03.0 - Elevated blood-pressure reading, without diagnosis of hypertension Category: Medical Plan: Blood pressure elevated on exam and when retaken. Advised patient to take blood pressures at home and keep a log to bring to next appointment. If blood pressures are persistently over 140/90 reach out to the office for earlier appointment. Reviewed red flag symptoms of elevated blood pressure and when to present for re-evaluation. (3) Morbid obesity: Code(s): E66.01 - Morbid (severe) obesity due to excess calories Category: Medical Plan: Healthy diet and regular exercise is encouraged. Plan This note was constructed using voice recognition software. While every effort has been made to ensure accuracy and hot iron worker, still areas may have been included sometimes these areas may affect the content or meeting of the given symptoms. Total time spent caring for the patient today was 20 minutes. This includes time spent before the visit reviewing the chart, time spent during the visit, and time spent after the visit and documentation. Orders: Referrals Urology Referral Z30.09 - Encounter for other general counseling and advice on contraception
== END 2024-04-05 09:18 | disposition home or self-care (01) ==
PROVIDERS: PCP Internal Medicine
DX: R03.0 Elevated blood-pressure reading, without diagnosis of hypertension (principal); E66.01 Morbid (severe) obesity due to excess calories; Z68.41 Body mass index [BMI] 40.0-44.9, adult; Z30.09 Encounter for other general counseling and advice on contraception

== ENCOUNTER 2024-04-13 15:37 | Outpatient (AMB) | payer OTHER, MEDICAID, SELFPAY ==
--- NOTE | 2024-04-13 15:41 | A.OFFPC_ITS ---
Vital Signs 04/13/24 15:42 Height 5 ft 11 in Weight 318 lb 2 oz BMI 44.4 BP 150/100 H Blood Pressure Location Rt brachial Position Sitting Pulse 97 Pulse Source Pulse Oximeter Pulse Oximetry (%) 95 Oxygen Delivery Method Room Air Intake Visit Reasons: Pain on left shoulder, elevated BP Intake Note: Patient is here to follow up on Pain on left shoulder, Elevated BP. Manager Special Events Required: No Administrative Operations Coordinator: Present Accompanied by: Child Allergies No Known Allergies Allergy (Verified 04/13/24 15:42) Tobacco use date assessed: 04/13/24 Dental Screening Dental Screen Date: 02/18/24 HPI Pain on left shoulder, elevated BP HPI Details 34-year-old male presents to the office for a sick visit. Patient has symptoms of left shoulder pain which has been aggravated after physical therapy. He has already seen orthopedics and is frustrated that his insurance is not covering the MRI yet. The shoulder pain is aggravating and his blood pressure is elevated in the last visit. He works in the [employer] services and is not able to afford to take any leave. [facility] Medical History (Updated 04/05/24 @ 09:00 by Destiny Fleming PA-C) Obesity LFT elevation Scalp laceration Collar bone fracture Surgical History History of facial surgery Family History Father Lung cancer Mother Gallbladder cancer Social History Housing: Apartment Alcohol intake: current Alcohol intake frequency: holidays/special occasions only Comment: once Q 3 months, 6 months Patient Tobacco Use Status: Former Tobacco user Tobacco use type: Cigarette Years Smoked: quit 2016 smoker for 8 years 1/2 pack a day NO cigarettes 2014. 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 Current occupational exposures/hazards: No Cognitive needs: No Hearing needs: No Vision needs: No Questionnaire Thrive Questionnaire Date Thrive assessed: 02/18/24 I am a: Patient What is your living situation today?: I have a steady place to live Within the past 12 months, did the food you bought not last and you didn't have the money to get more?: Never true Within the past 12 months, did you worry whether your food would run out before you got money to buy more?: Never true Do you have trouble paying for medicines?: No Do you have trouble getting transportation to medical appointments?: No Do you have trouble paying your heating and electricity bill?: No Do you have trouble taking care of your child, family member or friend?: No Do you have trouble with day-to-day activities such as bathing, preparing meals, shopping, managing finances, etc.?: No Are you currently unemployed and looking for a job?: No Are you interested in more education?: No Please select the resources that you would like help with: None Currently or been in a relationship where the following occur: No concerns reported THRIVE Score: 0 SHAYY-7 AMB Questionnaire SHAYY-7 Date SHAYY - 7 assessed: 02/18/24 Source: Developed by Drs. Rahul Sidhu, Chioma Weller, Jose Francisco Valencia and colleagues, with an educational jose from [employer]. Physical exam (Primary Care) Vital Signs: Last Vital Signs Pulse 97 04/13/24 15:42 BP 150/100 H 04/13/24 15:42 Pulse Ox 95 04/13/24 15:42 Oxygen Delivery Method Room Air 04/13/24 15:42 BMI result Body Mass Index 44.4 Tobacco/Smoking Status: Tobacco use Status Tobacco use date assessed 04/13/24 04/13/24 15:59 Patient Tobacco Use Status Former Tobacco user 04/13/24 15:59 Tobacco use type Cigarette 04/13/24 15:59 e-Cigarette/Vaping Use Never Used 04/13/24 15:59 Thrive Assessment: Date of Thrive Assessment Date Thrive assessed 02/18/24 04/13/24 15:59 Currently or been in a relationship where the following occur: No concerns reported Extrem Other: Right shoulder: limited range of motion. Coding Level of Care Code Est Pt Level 3 (64002) Complex EM visit Add On G2211 Diagnoses Left shoulder strain S46.912A Assessment & Plan Assessment & Plan (1) Left shoulder strain: Code(s): S46.912A - Strain of unspecified muscle, fascia and tendon at shoulder and upper arm level, left arm, initial encounter Plan: Motrin for pain called in. Patient cannot wear a sling at work. A note to ortho has been sent regarding the MRI. Lisinopril called in Medications: New ibuprofen 800 mg PO TID 90 tabs 1RF lisinopril 10 mg PO DAILY 90 tabs 1RF
[2024-04-13 15:42] VITALS: BP 150/100; PULSE 97; O2SAT 95; BMI 44.4
== END 2024-04-13 16:18 | disposition home or self-care (01) ==
PROVIDERS: PCP Internal Medicine; Visit Provider Internal Medicine
DX: S46.912A Strain of unspecified muscle, fascia and tendon at shoulder and upper arm level, left arm, initial encounter (principal)

== ENCOUNTER 2024-04-14 16:45 | Outpatient (REF) | payer OTHER, MEDICAID, SELFPAY ==
--- NOTE | ~2024-04-14 | MR_ITS ---
EXAMINATION: MR SHOULDER WITHOUT CONTRAST, LEFT CLINICAL INFORMATION: Rotator cuff tear. Rupture of left shoulder. COMPARISON: X-ray of the left shoulder 10/13/2023. TECHNIQUE: MRI of the shoulder without contrast was performed on a high-field scanner. FINDINGS: ROTATOR CUFF: Supraspinatus: There is a small focal area of ill-defined increased signal along the insertion of the anterior tendon compatible with focal tendinosis or small partial tear involving the intrasubstance and bursal side of the tendon. No clearly measurable defect or tendon retraction. Muscle normal. Remaining rotator cuff muscles and tendons are normal. BICEPS: Normal. CORACOACROMIAL ARCH: The undersurface of the acromion is curved with no subacromial spur. Ossification embedded in the superior capsule of the AC joint perhaps related to old ligamentous tear/trauma. Joint otherwise unremarkable. BURSA: Normal. LABRUM/CAPSULE: Normal. GLENOHUMERAL JOINT/MARROW: Normal. MR/MR shoulder LT wo con IMPRESSION: Focal tendinosis versus small ill-defined partial tear of the insertion of the anterior supraspinatus tendon. Electronically signed by: Enrique Moss MD 04/25/2024 05:41 PM AGUSTÍN
== END 2024-04-14 16:46 | disposition home or self-care (01) ==
LOC: HO.MRI 16:45
PROVIDERS: PCP Internal Medicine; Visit Provider Physician Assistant
DX: M75.102 Unspecified rotator cuff tear or rupture of left shoulder, not specified as traumatic (principal)
CPT/HCPCS: 73221

== ENCOUNTER 2024-04-28 10:01 | Outpatient (AMB) | payer OTHER, MEDICAID, SELFPAY ==
--- NOTE | 2024-04-28 10:03 | MHC.OFFVIS ---
Intake Visit Reasons: OV - Left shoulder MRI review Intake Note: Mansoor is a 34 year old male who presents today for a MRI review of his left shoulder. MRI was done on 04/14/24. Patient reports he was rushing to get here and he was shoveling so he doesn't really feel his pain at the moment. Allergies No Known Allergies Allergy (Verified 04/28/24 10:05) HPI HPI OV - Left shoulder MRI review: Details: 34-year-old left-hand dominant male who presents in the office today for a follow-up of left shoulder pain. I last saw the patient in the office on 12/21/23 when an MRI of the left shoulder was ordered. While in the office today, The patient reports he was shoveling then rushed to the clinic for today?s appointment. So, he denies feeling any pain in the left shoulder currently. The patient reported a history of a clavicle fracture in the left shoulder when he was 16, in 2002. [facility] Medical History (Updated 04/05/24 @ 09:00 by Destiny Fleming PA-C) Obesity LFT elevation Scalp laceration Collar bone fracture Surgical History History of facial surgery Family History Father Lung cancer Mother Gallbladder cancer Social History Housing: Apartment Alcohol intake: current Alcohol intake frequency: holidays/special occasions only Comment: once Q 3 months, 6 months Patient Tobacco Use Status: Former Tobacco user Tobacco use type: Cigarette Years Smoked: quit 2016 smoker for 8 years 1/2 pack a day NO cigarettes 2014. 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 Current occupational exposures/hazards: No Cognitive needs: No Hearing needs: No Vision needs: No Review of Systems Const All systems reviewed & are unremarkable except as noted in HPI and below Physical Exam Const General: cooperative, healthy appearing and no acute distress Orientation/consciousness: patient oriented x3 Resp Effort & Inspection: normal respiratory effort and able to speak in complete sentences Cardio Rate: regular rate Peripheral pulses: Peripheral pulses 2+ throughout GI Palpation (GI): Soft to palpation Skin General skin exam: no rashes or lesions noted Lesions: no lesions Rashes: no rashes Neuro General: patient oriented x3 Extrem Other: Left shoulder: Normal to inspection. No ecchymosis, erythema, or edema. Forward flexion to end rand. Abduction lacking about 40 degrees. Able to reach T-12. External rotation to end range. Pain with cross-body reach. 4/5 strength with empty can. Negative drop arm. NVI. Assessment & Plan Assessment & Plan (1) Painful arc syndrome of left shoulder: Code(s): M75.102 - Unspecified rotator cuff tear or rupture of left shoulder, not specified as traumatic Category: Medical Plan Mr. Mathews is a 34-year-old left-hand dominant male who presents in the office today for a follow-up of left shoulder pain. I last saw the patient in the office on 12/21/23 when an MRI of the left shoulder was ordered. While in the office today, The patient reports he was shoveling then rushed to the clinic for today?s appointment. So, he denies feeling any pain in the left shoulder currently. The patient reported a history of a clavicle fracture in the left shoulder when he was 16, in 2002. Dr. Reed was available to speak with me and the patient and perform a physical exam while in the office today and a collaborative treatment plan was made. The patient has elected to proceed with a left shoulder rotator cuff repair. I discussed in detail the procedure and what to expect pre and post operatively. We discussed the risks, benefits and alternatives to the surgery and the rehabilitation course. The risks include infection, bleeding, nerve injury, ongoing pain, swelling, and stiffness, perioperative risk of injury to bones and soft tissues, and blood clots. I have answered all questions and with their understanding they have consented to move forward with a left shoulder rotator cuff repair. A booking sheet was provided to the surgical schedulers, Ms. Paez, who will reach out to the patient. Follow-up will be post-op, or sooner if needed. MRI of the left shoulder, obtained on 04/14/24, revealed: Focal tendinosis versus small ill-defined partial tear of the insertion of the anterior supraspinatus tendon. Patient Instructions: Scribed by Candelaria Thippeswamy, medical artist, for Mariann Jil ARTHUR on 04/28/24 at 10:22 am EST. Coding Level of Care Code Est Pt Level 4 (85061) Diagnoses Painful arc syndrome of left shoulder M75.102
== END 2024-04-28 10:35 | disposition home or self-care (01) ==
PROVIDERS: PCP Internal Medicine; Visit Provider Physician Assistant
DX: M75.102 Unspecified rotator cuff tear or rupture of left shoulder, not specified as traumatic (principal)
CPT/HCPCS: 99214

== ENCOUNTER 2024-05-11 14:09 | Outpatient (AMB) | payer OTHER, SELFPAY ==
[2024-05-11 14:12] VITALS: BP 126/80; PULSE 86; O2SAT 96; BMI 44.8
--- NOTE | 2024-05-11 14:12 | A.OFFPC_ITS ---
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 Accompanied by: Self / Same As Patient Allergies No Known Allergies Allergy (Verified 05/11/24 14:12) Medication List - Last Reconciled 05/11/24 by Destiny Fleming PA-C albuterol sulfate 90 mcg/actuation (Proventil HFA) 2 puffs inhalation Q4-6H PRN cetirizine (Zyrtec) 10 mg PO DAILY PRN esomeprazole magnesium (Nexium) 20 mg PO DAILY ibuprofen 800 mg PO TID lisinopril 10 mg PO DAILY Tobacco use date assessed: 05/11/24 Dental Screening Dental Screen Date: 05/11/24 Did you have a dental visit in the last 12 months?: Yes Did you have a dental problem in the last 6 months where you did not have access to dental care?: No Was dental information given to patient?: Patient has dentist HPI left ear swollen HPI Details 34-year-old morbidly obese male with fat ty liver/hepatic steatosis GERD coming in for acute problem. Patient states he was cleaning his ears on Thursday when he felt a sudden pop sensation in the left ear without pain or bleeding. Denies any discharge from the ear that time. He went to urgent care on Thursday and was given a combination steroid/antibiotic ear drop and has been using that was advised to use that for 14 days. Today he tells us he continues to have decreased hearing in the left ear has been continually cleaning wax out of the ear without discharge or blood. Denies any pain in the ear. [facility] Medical History (Updated 05/11/24 @ 14:42 by Destiny Fleming PA-C) Obesity LFT elevation Scalp laceration Collar bone fracture Surgical History History of facial surgery Family History Father Lung cancer Mother Gallbladder cancer Social History Housing: Apartment Alcohol intake: current Alcohol intake frequency: holidays/special occasions only Comment: once Q 3 months, 6 months Patient Tobacco Use Status: Former Tobacco user Tobacco use type: Cigarette Years Smoked: quit 2016 smoker for 8 years 1/2 pack a day NO cigarettes 2014. 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 1. Little interest or pleasure in doing things: not at all 2. Feeling down, depressed, or hopeless: not at all 3. Trouble falling or staying asleep, or sleeping too much: not at all 4. Feeling tired or having little energy: not at all 5. Poor appetite or overeating: not at all 6. Feeling bad about yourself - or that you are a failure or have let yourself or your family down: not at all 7. Trouble concentrating on things, such as reading the newspaper or watching television: not at all 8. Moving or speaking so slowly that other people could have noticed. Or the opposite - being so fidgety or restless that you have been moving around a lot more than usual: not at all 9. Thoughts that you would be better off or of hurting yourself in some way: not at all Total score: 0 Depression Screening Interpretation: Negative Depression Screening Done: Yes Source: Developed by Drs. Rahul Sidhu, Chioma Weller, Jose Francisco Valencia and colleagues, with an educational jose from [employer]. Thrive Questionnaire Date Thrive assessed: 05/11/24 I am a: Patient What is your living situation today?: I have a steady place to live Within the past 12 months, did the food you bought not last and you didn't have the money to get more?: Never true Within the past 12 months, did you worry whether your food would run out before you got money to buy more?: Never true Do you have trouble paying for medicines?: No Do you have trouble getting transportation to medical appointments?: No Do you have trouble paying your heating and electricity bill?: No Do you have trouble taking care of your child, family member or friend?: No Do you have trouble with day-to-day activities such as bathing, preparing meals, shopping, managing finances, etc.?: No Are you currently unemployed and looking for a job?: No Are you interested in more education?: No Please select the resources that you would like help with: None Currently or been in a relationship where the following occur: No concerns reported THRIVE Score: 0 AUDIT C Alcohol Use Questionnaire (AUDIT-C) 1. How often do you have a drink containing alcohol?: Monthly or less 2. How many drinks containing alcohol do you have on a typical day when you are drinking?: 3 or 4 3. How often do you have six or more drinks on one occasion?: Never Total Score: 2 SHAYY-7 AMB Questionnaire SHAYY-7 Date SHAYY - 7 assessed: 05/11/24 Feeling nervous, anxious, or on edge: 0 = Not at all Not being able to stop or control worryin = Not at all Worrying too much about different things: 0 = Not at all Trouble relaxin = Not at all Being so restless that it is hard to sit still: 0 = Not at all Becoming easily annoyed or irritable: 0 = Not at all Feeling afraid as if something awful might happen: 0 = Not at all Total SHAYY-7 score (0-4 normal; 5-9 mild; 10-14 moderate; 15-21 severe): 0 Source: Developed by Drs. Rahul Sidhu, Chioma Weller, Jose Francisco Valencia and colleagues, with an educational jose from [employer]. Review of Systems Const Denies body aches, Denies chills, Denies fever(s), Denies headache(s) and Denies poor appetite Eyes Reports no additional complaints ENT Denies dizziness and Denies headache(s) Card Denies chest pain, Denies syncope, Denies edema, Denies irregular heart rhythm, Denies lightheadedness and Denies dyspnea Resp Denies cough and Denies dyspnea GI Denies abdominal pain, Denies constipation, Denies diarrhea, Denies nausea and Denies vomiting Reports no additional complaints Musc Reports no additional complaints and Denies abnormal gait Skin/Breast Reports system reviewed and no additional complaints, except as documented Neuro Denies abnormal gait, Denies dizziness, Denies syncope and Denies headache(s) Psych Reports no additional complaints Physical exam (Primary Care) Vital Signs: Last Vital Signs Pulse 86 05/11/24 14:12 BP 126/80 05/11/24 14:12 Pulse Ox 96 05/11/24 14:12 Oxygen Delivery Method Room Air 05/11/24 14:12 BMI result Body Mass Index 44.8 Tobacco/Smoking Status: Tobacco use Status Tobacco use date assessed 05/11/24 05/11/24 14:14 Patient Tobacco Use Status Former Tobacco user 05/11/24 14:13 Tobacco use type Cigarette 05/11/24 14:13 e-Cigarette/Vaping Use Never Used 05/11/24 14:13 PHQ-9: PHQ-9 Score PHQ-9: Total score 0 05/11/24 14:24 Depression Screening Interpretation: Negative Thrive Assessment: Date of Thrive Assessment Date Thrive assessed 05/11/24 05/11/24 14:14 Currently or been in a relationship where the following occur: No concerns reported Const General: cooperative, healthy appearing, comfortable and no acute distress Orientation/consciousness: patient oriented x3 HENMT Other: Left ear canal is erythematous with friable tissue and purulent discharge. Left TM shows purulent fluid behind the drum. Right ear canal erythematous and irritated without drainage and TM normal. Head: Yes normocephalic Ears: hearing grossly normal bilaterally General nose exam: Normal external nose present Eyes General: appearance normal, both eyes and all related structures Conjunctivae: conjunctivae normal Neck Neck: Yes full ROM and Yes no lymphadenopathy Resp Effort & Inspection: normal respiratory effort Auscultation: clear to auscultation bilaterally, no crackles, no rales, no rhonchi and no wheezes Cardio Rate: regular rate Rhythm: regular rhythm Skin General skin exam: no rashes or lesions noted Neuro General: patient oriented x3 Gait exam (Neuro): Normal gait present Extrem General: Yes normal to inspection, Yes full ROM and No edema Psych Affect: normal affect Attitude: cooperative Insight: Good insight present (Psych) Judgement: Good judgement present (Psych) Coding Level of Care Code Est Pt Level 3 (73392) Diagnoses Morbid obesity E66.01 Hypertension I10 Otitis media H66.90 Otitis externa H60.90 Assessment & Plan Assessment & Plan (1) Morbid obesity: Code(s): E66.01 - Morbid (severe) obesity due to excess calories Category: Medical Plan: Healthy diet and regular exercise is encouraged. (2) Hypertension: Code(s): I10 - Essential (primary) hypertension Category: Medical Plan: Continue on current blood pressure medication. Avoid salt intake and encourage healthy diet and regular exercise. Blood pressure at goal today with the use of lisinopril 10 mg. (3) Otitis media: Code(s): H66.90 - Otitis media, unspecified, unspecified ear Category: Medical Plan: On exam, left ear shows erythematous canal and purulent fluid behind the TM. We will treat with oral antibiotics along with topical antibiotic drops given by urgent care. Reviewed red flag symptoms and when to present for re-evaluation. No evidence of perforation of left TM (4) Otitis externa: Code(s): H60.90 - Unspecified otitis externa, unspecified ear Category: Medical Plan: Patient currently using antibiotic/steroid drops for the left ear given by urgent care. Plan This note was constructed using voice recognition software. While every effort has been made to ensure accuracy and settlement processor, still areas may have been included sometimes these areas may affect the content or meeting of the given symptoms. Total time spent caring for the patient today was 20 minutes. This includes time spent before the visit reviewing the chart, time spent during the visit, and time spent after the visit and documentation. Medications: New amoxicillin-pot clavulanate 875-125 mg 1 tab PO BID 14 tabs 0RF
== END 2024-05-11 14:40 | disposition home or self-care (01) ==
PROVIDERS: PCP Internal Medicine
DX: H66.92 Otitis media, unspecified, left ear (principal); H60.92 Unspecified otitis externa, left ear; E66.01 Morbid (severe) obesity due to excess calories; Z68.41 Body mass index [BMI] 40.0-44.9, adult; I10 Essential (primary) hypertension

== ENCOUNTER → 2024-05-11 14:09 | Outpatient (BNVA) | payer OTHER, SELFPAY | PROVIDERS: PCP Internal Medicine ==

== ENCOUNTER 2024-06-16 09:13 | Outpatient (AMB) | payer OTHER, SELFPAY ==
--- NOTE | 2024-06-16 09:30 | A.OFFVIS_ITS ---
Vital Signs 06/16/24 09:33 Height 5 ft 11 in Weight 321 lb BMI 44.8 Handedness Left Intake Visit Reasons: Preop LT RTC repair 06/22/24 NE Intake Note: Mansoor is a 34 year old right hand dominant male who presents today for a pre op appointment for his left rotator cuff repair 06/22/24 NE. Allergies No Known Allergies Allergy (Verified 06/16/24 09:36) HPI HPI Preop LT RTC repair 06/22/24 NE: Details: Mr. Mathews is a inhwdy-vvzz-xcgi-old?female?who presents in the office today for?his?preoperative history and physical exam prior to a?left shoulder rotator cuff repair?to be performed on?06/22/2024?by?Dr. Reed.?? [facility] Medical History (Updated 06/16/24 @ 10:15 by Mariann Ley PA-C) Obesity LFT elevation Scalp laceration Collar bone fracture Surgical History History of facial surgery Family History Father Lung cancer Mother Gallbladder cancer Social History Housing: Apartment Alcohol intake: current Alcohol intake frequency: holidays/special occasions only Comment: once Q 3 months, 6 months Patient Tobacco Use Status: Former Tobacco user Tobacco use type: Cigarette Years Smoked: quit 2016 smoker for 8 years 1/2 pack a day NO cigarettes 2014. 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 Current occupational exposures/hazards: No Cognitive needs: No Hearing needs: No Vision needs: No Review of Systems Const All systems reviewed & are unremarkable except as noted in HPI and below Physical Exam Vital Signs: BMI result Body Mass Index 44.8 Const General: cooperative, healthy appearing and no acute distress Orientation/consciousness: patient oriented x3 Resp Effort & Inspection: normal respiratory effort and able to speak in complete sentences Cardio Rate: regular rate Peripheral pulses: Peripheral pulses 2+ throughout GI Palpation (GI): Soft to palpation Skin General skin exam: no rashes or lesions noted Lesions: no lesions Rashes: no rashes Neuro General: patient oriented x3 Extrem Other: Left shoulder: Normal to inspection. No ecchymosis, erythema, or edema. Forward flexion to end rand. Abduction lacking about 40 degrees. Able to reach T-12. External rotation to end range. Pain with cross-body reach. 4/5 strength with empty can. Negative drop arm. NVI. Assessment & Plan Assessment & Plan (1) Complete rotator cuff tear of left shoulder: Code(s): M75.122 - Complete rotator cuff tear or rupture of left shoulder, not specified as traumatic Category: Medical Plan Mr. Mathews is a lqwcof-zrya-chbm-old?female?who presents in the office today for?his?preoperative history and physical exam prior to a?left shoulder rotator cuff repair?to be performed on?06/22/2024?by?Dr. Reed.?? I discussed in detail the procedure and what to expect pre and post operatively. We discussed the risks, benefits and alternatives to the surgery as well as the rehabilitation course. The risks; which include, but are not limited to infection, bleeding, nerve injury, ongoing pain, swelling, and stiffness, perioperative risk of injury to bones and soft tissues, and blood clots. Post operative medications were sent to the pharmacy, while in the office today. The patient was instructed that?he/she?should obtain the prescription prior to surgery but should not consume until after the procedure; as these should only be taken for postoperative pain management. Should the patient take these medications before surgery, a refill will not be sent to the pharmacy until their scheduled refill date.?? Medication sent: oxycodone-acetaminophen 5-325 mg (Percocet) PO Q4-6H PRN, quantity 42 tabs for 7 days and morphine ER 15 mg (MS Contin) PO Q12H PRN, quantity 6 tabs for 3 days? I?ve answered all questions and with their understanding they have consented to move forward with left shoulder rotator cuff repair with Dr. Reed. Medications: New morphine ER (MS Contin) Partial Fill upon patient request. 15 mg PO Q12H 3 days 6 tabs 0RF oxycodone-acetaminophen 5-325 mg Partial Fill upon patient request. 1 tab PO Q4-6H 7 days PRN 42 tabs 0RF pain Coding Level of Care Code Global (65865) Diagnoses Complete rotator cuff tear of left shoulder M75.122
[2024-06-16 09:33] VITALS: BMI 44.8
== END 2024-06-16 10:01 | disposition home or self-care (01) ==
PROVIDERS: PCP Internal Medicine; Visit Provider Physician Assistant
DX: M75.122 Complete rotator cuff tear or rupture of left shoulder, not specified as traumatic (principal)
CPT/HCPCS: 99024

== ENCOUNTER 2024-06-22 10:01 | Day surgery (SDC) | payer OTHER, MEDICAID, SELFPAY ==
[2024-06-20 11:26] VITALS: BMI 44.8
--- NOTE | 2024-06-21 10:29 | P.CONAN_ITS ---
Documented by User: Lynsey Tsang NP 06/21/24 10:32 HPI - Anesthesia Eval Consult details Narrative: 34yo M for Left Arthroscopic Rotator Cuff Repair PMFSH Active Problems Active Problems: All Active Problems Complete rotator cuff tear of left shoulder (Acute) Otitis externa (Acute) Otitis media (Acute) Hypertension (Acute) Vasectomy evaluation (Acute) Hypersomnia (Acute) Blood pressure elevated without history of HTN (Acute) Morbid obesity (Acute) Painful arc syndrome of left shoulder (Acute) Cough (Acute) Left shoulder pain (Acute) Hearing deficit (Acute) Urticaria (Acute) GERD (gastroesophageal reflux disease) (Acute) Hepatic steatosis (Acute) Frequency of micturition (Acute) Annual physical exam (Acute) Past Medical History Medical History Obesity LFT elevation Scalp laceration Collar bone fracture Family History Family History Father Lung cancer Mother Gallbladder cancer Surgical History Surgical History History of facial surgery Social History Social History Housing: Apartment Alcohol intake: current Alcohol intake frequency: holidays/special occasions only Comment: once Q 3 months, 6 months Patient Tobacco Use Status: Former Tobacco user Tobacco use type: Cigarette Years Smoked: quit 2015 smoker for 8 years 1/2 pack a day NO cigarettes 2014. 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 Current occupational exposures/hazards: No Cognitive needs: No Hearing needs: No Vision needs: No Meds Allergies Allergy/AdvReac Type Severity Reaction Status Date / Time No Known Allergies Allergy Verified 06/22/24 10:51 Exam Height,Weight and Vital Signs: Height 5 ft 11 in Weight 145.603 kg Assessment and Plan Assessment Anesthesia Assessment: Chart Reviewed Documented by User: Martine Espinoza MD 06/22/24 12:07 PMFSH Past Medical History Medical History Obesity LFT elevation Scalp laceration Collar bone fracture Family History Family History Father Lung cancer Mother Gallbladder cancer Family history of problems with anesthesia: No Surgical History Surgical History History of facial surgery History of Problems with Anesthesia: No Social History Social History Housing: Apartment Alcohol intake: current Alcohol intake frequency: holidays/special occasions only Comment: once Q 3 months, 6 months Patient Tobacco Use Status: Former Tobacco user Tobacco use type: Cigarette Years Smoked: quit 2015 smoker for 8 years 1/2 pack a day NO cigarettes 2014. 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 Current occupational exposures/hazards: No Cognitive needs: No Hearing needs: No Vision needs: No Meds Allergies Allergy/AdvReac Type Severity Reaction Status Date / Time No Known Allergies Allergy Verified 06/22/24 10:51 Exam Airway Mallampati Class: III TM Dist: <=3cm Neck ROM: Full Heart: rrr Lungs: cta Assessment and Plan Assessment Anesthesia Assessment: Anesthesia Plan Discussed Final Anesthetic Review Family History of Problems with Anesthesia: No History of Problems with Anesthesia: No NPO: Yes ASA Class: III (morbid obesity) Final Preanesthetic Review: No Changes in Pt Med Stat, Meds/Allgs Chart Reviewed, Consent Obtained/Reviewed and Anes Risks/Benef Reviewed Patient Risk: Intermediate Procedure Risk: Intermediate Anesthetic Plan Anesthetic Plan: GA and Regional Block Disposition: Standard PACU
[2024-06-22] VITALS (7 sets, daily range): BP systolic 114–133; BP diastolic 66–97; PULSE 66–82; RESP 16–24; TEMP 36.1–36.7; O2SAT 94–98; BMI 45.6
--- NOTE | 2024-06-22 10:58 | MHC.SHP ---
Pre-Procedural Eval Section A - 24 Hr Update-Section A only Date of Service: 06/22/24 The patient is an INPATIENT: No Changes since office visit: No Cold of Flu in the past 2 weeks, No New Medical Problems, No Changes in Medication and No Patient answered all questions The patient has been examined within 24 hours of the surgical procedure. The History & Physical has been completed within 30 days and I have reviewed it.: Yes Section B - Complete if H&P > 30 days Chief Complaint: Complete rotator cuff tear or rupture of left Allergies: Allergies Allergy/AdvReac Type Severity Reaction Status Date / Time No Known Allergies Allergy Verified 06/22/24 10:51 Plan I have reviewed the history and physical and performed a pertinent physical examination on my patient. No changes have occurred unless specified. Time Spent With Patient Time: Total time managing care of this patient today ____ minutes.
--- OUTSIDE RECORDS SUMMARY | 2024-06-22 11:53 | XMS_ITS | Patient Health Record ---
Author Organization [facility] Address [address] [place] [address] Care Team Providers Care Advanced Registered Nurse Name Role Phone LINDA ERICKSON Primary Care Provider Allergies No Known Allergies Reason For Referral No Information Social History Tobacco Use: Social History Observation Description Date Details (start date - stop date) Former Smoker 05/25/2006 - 05/25/2012 Household Question Answer Notes Marital status: significant other Number of adults in household: 2 Number of children in household: 0 Tobacco Use/Smoking Question Answer Notes Tobacco use: former smoker When did you start smoking? 05/25/2006 When did you stop smoking? 05/25/2012 Alcohol Screen (Audit-C) Question Answer Notes Did you have a drink contain ing alcohol in the past year? Yes How often did you have a dri nk containing alcohol in the past year? Monthly or less (1 point) How many drinks did you have on a typical day when you were drinking in the past year? 1 or 2 drinks (0 point) How often did you have 6 or more drinks on one occasion in the past year? Never (0 point) Points 1 Interpretation Negative Tobacco use other than smoking: Question Answer Notes Are you an other tobacco user? Yes Problems Problem Type SNOMED Code ICD Code Onset Dates Problem Status W/U Status Risk Notes Problem Nontraumatic rupture of muscle or tendon structure of rotator cuff of left shoulder (disorder) ([id number] [id number]) Unspecified rotator cuff tear or rupture of left shoulder, not specified as traumatic (M75.102) Active confirmed Problem 65564136 Sprain of medial collateral ligament of right knee, sequela (S83.411S) Active confirmed Problem History of nicotine dependence (62224582681092 9101) History of nicotine dependence (Z87.891) Active confirmed Problem Cannabis dependence (96539467) Cannabis dependence (F12.20) Active confirmed Problem 360920587 Morbid obesity with body mass index of 40.0-49.9 (E66.01) Active confirmed Problem 8017663 Closed nondisplaced fracture of acromial end of left clavicle, sequela (S42.035S) Active confirmed 2006 due to wrestling match in high school, but then found in 2009 that clavicle was broken and calcium build up; was told he may need surgery eventually; pain is only intermittent with certain movements; pt does not wish to pursue further treatment at this time due to time constraints Plan Of Treatment Pending Test Test Name Order Date Ultrasound : Abdomen 09/25/2021 X ray : Hip, left 09/25/2021 Future Test Test Name Order Date HEPATITIS PANEL, ACUTE W/REFLEX TO CONFI RMATION (37739) 10/17/2021 COMPREHENSIVE METABOLIC PANEL (43929) Insurance Providers Payer Name Payer Address Payer Phone Subscriber Number Group Number Insured Name Patient Relationship to Insured Coverage Start Date Coverage End Date [facility] [address] [address] [place] [phone] [id number] YASIR MOYA Self - patient is the insured Medical (General) History Medical History History ICD Code Unspecified rotator cuff tea r or rupture of left shoulder, not specified as traumatic M75.102 History of nicotine dependence Z87.891 Cannabis dependence F12.20
[2024-06-22] MEDS: Lactated Ringers 1,000 ML 100 ML IVCONT (12:35)
--- NOTE | 2024-06-22 14:21 | PM.OP ---
Brief Operative Note Date of Service: 06/22/24 Pre-op diagnosis: Left rtc tear Post-op diagnosis: same Procedure: left RTC repair with SAD Implants: Regeneten Bioinductive collagen patch, large Surgeon: Reji Reed MD Anesthesia: GETA Was an Cartridge Loader used for this Procedure?: Yes Cartridge Loader: Mariann Ley Estimated blood loss (mL): 25 IV fluids (mL): 800 Pathology: none sent Condition: stable Disposition: PACU
[2024-06-22] MEDS: fentaNYL citrate/PF 100 MCG/2 ML VIAL 50 MCG IVPUSH (15:15)
--- NOTE | 2024-06-30 16:32 | P.OP_ITS ---
Operative Note Operative Note Date of Service: 06/22/24 Narrative: Date of Service: 06/22/24 Pre-op diagnosis: Left rtc tear Post-op diagnosis: same Procedure: left RTC repair with SAD Implants: Regeneten Bioinductive collagen patch, large Surgeon: Reji Reed MD Anesthesia: GETA Was an Waste Water Or Water Plant Operator used for this Procedure?: Yes Waste Water Or Water Plant Operator: Mariann Ley Estimated blood loss (mL): 25 IV fluids (mL): 800 Pathology: none sent Condition: stable Disposition: PACU Procedure in detail: Patient was brought to the operating room and placed the the beach chair position. All bony prominences were well padded and the limb was prepped and draped in standard sterile fashion. A time out was called to identify proper site, proper procedure and proper surgeon. IV antibiotics per weight were administered. I began by making a posterolateral stab incision with a 15 blade. A blunt trochar was placed into the glenohumeral joint and I insufflated the joint with saline and a 30 degree arthroscope was placed. I established an outside- in anterior portal just distal to the biceps tendon. I then began my inspection of the glenohumeral joint. The cartilage surfaces were normal. There was no synovitis. The biceps labral complex was intact and normal. The labrum was normal circumferentially. The subcapularis was intact. There was no undersurface rotator cuff tearing I removed anterior the trochar and entered the subacromial space. A direct lateral portal was then established and I performed a bursectomy. There was florid bursitis. The cuff was then examined. There was a partial thickness tear of the supraspinatus. I debrided this with a oval shaver. The tear was appr oximately 50% and I elected to place a Regeneten collagen bio inductive implant. An additional lateral portal was made and the implant was placed through this. PEEK ky were used to affix the implant to the cuff into lateral bone PEEK ky were used laterally. I had excellent coverage over the area of partial- thickness tearing and was satisfied with the location of the collagen implant. I then used a oval bur to perform a 5 mm decompression of the anterolateral acromion. Once I was satisfied with the repair final images were captured and I removed all instrumentation. Portals were closed with nylon. Patient was placed in an abduction sling, extubated and brought to the recovery room in stable condition. There were no known complications.
== END 2024-06-22 15:48 | disposition home or self-care (01) ==
LOC: HO.SSS 10:02
PROVIDERS: PCP Internal Medicine; Visit Provider Orthopaedic Surgery
PROC: (CPT 29827; principal; 2024-06-22 12:20)
DX: Z87.891 Personal history of nicotine dependence (principal); M75.52 Bursitis of left shoulder; E66.9 Obesity, unspecified; Z68.41 Body mass index [BMI] 40.0-44.9, adult; R79.89 Other specified abnormal findings of blood chemistry; Z79.1 Long term (current) use of non-steroidal anti-inflammatories (NSAID); Z79.899 Other long term (current) drug therapy; Z87.81 Personal history of (healed) traumatic fracture; M75.122 Complete rotator cuff tear or rupture of left shoulder, not specified as traumatic
CPT/HCPCS: 29827; 29826; C1713; C1763; J0131; J0171; J0665; J0690; J1100; J2003; J2250; J2405; J2704; J2795; J3010

== ENCOUNTER → 2024-06-22 10:01 | Outpatient (BNV) | payer OTHER, MEDICAID, SELFPAY | PROVIDERS: PCP Internal Medicine; Visit Provider Orthopaedic Surgery | DX: S46.012A Strain of muscle(s) and tendon(s) of the rotator cuff of left shoulder, initial encounter (principal) | CPT/HCPCS: 29827 ==

== ENCOUNTER 2024-07-11 10:46 | Outpatient (AMB) | payer OTHER, MEDICAID, SELFPAY ==
--- NOTE | 2024-07-11 11:13 | MHC.PC.OV ---
Vital Signs 07/11/24 11:15 Height 5 ft 11 in Weight 322 lb 6 oz BMI 45.0 BP 138/68 Blood Pressure Location Rt brachial Position Sitting Pulse 88 Pulse Source Pulse Oximeter Temp 97.3 F Temp Source Temporal Artery Scan Pulse Oximetry (%) 96 Oxygen Delivery Method Room Air Intake Visit Reasons: Weight Loss Intake Note: Patient is here to follow up on weight loss. Sales Planning Coordinator Required: No Booster Station Operator: Not Required per policy Accompanied by: Self / Same As Patient Allergies No Known Allergies Allergy (Verified 07/11/24 11:28) Medication List - Last Reconciled 07/12/24 by LAZARO Gutierrez albuterol sulfate 90 mcg/actuation (Proventil HFA) 2 puffs inhalation Q4-6H PRN cetirizine (Zyrtec) 10 mg PO DAILY PRN esomeprazole magnesium (Nexium) 20 mg PO DAILY ibuprofen 800 mg PO TID lisinopril 10 mg PO DAILY mupirocin 2% 1 appl topical BID oxycodone-acetaminophen 5-325 mg 1 tab PO Q6H PRN 7 days Tobacco use date assessed: 07/11/24 Dental Screening Dental Screen Date: 07/11/24 Did you have a dental visit in the last 12 months?: Yes Did you have a dental problem in the last 6 months where you did not have access to dental care?: No Was dental information given to patient?: Patient has dentist HPI Weight Loss HPI Details The patient is a 34-year-old male with significant past medical history of complete rotator cuff tear of the left shoulder, hypersomnia, morbid obesity, GERD, hepatic steatosis. Patient also has a history of hypertension and is prescribed lisinopril 10 mg daily. Patient reports that the only reason why he had diagnosis of high blood pressure is because of the pain he was having in his left shoulder Reports that he has not been taken the lisinopril 10 mg for over 3 months now and his blood pressure still has been good Patient reports that since 2022 he has been working on his weight. He has been putting in exercise and his weight keeps increasing. He is going to the gym and he is eating healthier The patient is requesting to be placed on a GLP 1 to help him lose weight Discussed with patient that we has been getting a lot of denies from the insurance company Reports that they are certain things that the insurance are requesting for the patient's to do before they will pay for the medication The patient has to show that he is actively trying to lose weight Discussed with patient that if he is trying to lose weight he will probably be more successful joining in a weight loss program Discussed with patient that not only medication but a weight loss program could teach him lifelong tools to help him keep the weight off long-term The patient is agreeable, will refer to [facility], per patient choice The patient also has a small open area in left nostril from picking his nose We will order mupirocin ointment, explained to patient that he can use a Q-tip to apply it to the area He denies shortness of breath, chest pain, heart palpitation, and dizziness Reports that he is moving his bowels without any issues and he has no urinary symptoms PFSH Medical History Obesity LFT elevation Scalp laceration Collar bone fracture Surgical History History of arthroplasty of left shoulder History of facial surgery Family History Father Lung cancer Mother Gallbladder cancer Social History Housing: Apartment Alcohol intake: current Alcohol intake frequency: holidays/special occasions only Comment: once Q 3 months, 6 months Patient Tobacco Use Status: Former Tobacco user Tobacco use type: Cigarette Years Smoked: quit 2015 smoker for 8 years 1/2 pack a day NO cigarettes 2014. 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 1. Little interest or pleasure in doing things: not at all 2. Feeling down, depressed, or hopeless: not at all 3. Trouble falling or staying asleep, or sleeping too much: not at all 4. Feeling tired or having little energy: not at all 5. Poor appetite or overeating: not at all 6. Feeling bad about yourself - or that you are a failure or have let yourself or your family down: not at all 7. Trouble concentrating on things, such as reading the newspaper or watching television: not at all 8. Moving or speaking so slowly that other people could have noticed. Or the opposite - being so fidgety or restless that you have been moving around a lot more than usual: not at all 9. Thoughts that you would be better off or of hurting yourself in some way: not at all Total score: 0 Depression Screening Interpretation: Negative Depression Screening Done: Yes 23404 - PHQ-9 Billing: Yes Source: Developed by Drs. Rahul Sidhu, Chioma Weller, Jose Francisco Valencia and colleagues, with an educational jose from [employer]. Thrive Questionnaire Date Thrive assessed: 07/11/24 I am a: Patient What is your living situation today?: I have a steady place to live Within the past 12 months, did the food you bought not last and you didn't have the money to get more?: Never true Within the past 12 months, did you worry whether your food would run out before you got money to buy more?: Never true Do you have trouble paying for medicines?: No Do you have trouble getting transportation to medical appointments?: No Do you have trouble paying your heating and electricity bill?: No Do you have trouble taking care of your child, family member or friend?: No Do you have trouble with day-to-day activities such as bathing, preparing meals, shopping, managing finances, etc.?: No Are you currently unemployed and looking for a job?: No Are you interested in more education?: No Please select the resources that you would like help with: None Currently or been in a relationship where the following occur: No concerns reported THRIVE Score: 0 AUDIT C Alcohol Use Questionnaire (AUDIT-C) 2. How many drinks containing alcohol do you have on a typical day when you are drinking?: 1 or 2 3. How often do you have six or more drinks on one occasion?: Less than monthly Total Score: 1 SHAYY-7 AMB Questionnaire SHAYY-7 Date SHAYY - 7 assessed: 07/11/24 Feeling nervous, anxious, or on edge: 0 = Not at all Not being able to stop or control worryin = Not at all Worrying too much about different things: 0 = Not at all Trouble relaxin = Not at all Being so restless that it is hard to sit still: 0 = Not at all Becoming easily annoyed or irritable: 0 = Not at all Feeling afraid as if something awful might happen: 0 = Not at all Total SHAYY-7 score (0-4 normal; 5-9 mild; 10-14 moderate; 15-21 severe): 0 Source: Developed by Drs. Rahul Sidhu, Chioma Weller, Jose Francisco Valencia and colleagues, with an educational jose from [employer]. SHAYY-7 Assessment Billing SHAYY-7 Assessment Tool: SHAYY-7 Assessment 89136 Review of Systems Const Details: Denies chills, Denies fatigue, Denies fever(s), Denies headache(s) and Denies weakness HEENT Denies change in vision, Denies dizziness, Denies headache(s), Denies hearing loss, Denies nasal congestion, Denies sinus pain, Denies sinus pressure and Denies sore throat Card Denies chest pain, Denies lightheadedness, Denies dyspnea and Denies other (palpitations) Resp Denies cough, Denies dyspnea and Denies wheezing GI Denies abdominal pain, Denies melena, Denies hematochezia, Denies change in bowel habits, Denies dyspepsia and Denies nausea Denies hematuria and Denies dysuria Musc Denies abnormal gait, Denies myalgias, Denies arthralgias, Denies numbness and Denies tingling Skin/Breast Denies rash, Denies unusual bruising and Denies wounds Neuro Denies abnormal gait, Denies dizziness, Denies headache(s), Denies memory loss, Denies numbness, Denies Sensory deficit (Neuro), Denies tingling and Denies weakness Psych Denies anxiety, Denies depression and Denies memory loss Endo Denies cold intolerance, Denies fatigue, Denies heat intolerance, Denies polydipsia and Denies polyuria Karan/Lymph Denies easy bleeding and Denies easy bruising Aller/Immun Denies wheezing Physical exam (Primary Care) Vital Signs: Last Vital Signs Temp 97.3 F 07/11/24 11:15 Pulse 88 07/11/24 11:15 BP 138/68 07/11/24 11:15 Pulse Ox 96 07/11/24 11:15 Oxygen Delivery Method Room Air 07/11/24 11:15 BMI result Body Mass Index 45.0 Tobacco/Smoking Status: Tobacco use Status Tobacco use date assessed 07/11/24 07/11/24 11:23 Patient Tobacco Use Status Former Tobacco user 07/11/24 11:23 Tobacco use type Cigarette 07/11/24 11:23 e-Cigarette/Vaping Use Never Used 07/11/24 11:23 PHQ-9: PHQ-9 Score PHQ-9: Total score 0 07/12/24 08:39 Depression Screening Interpretation: Negative Thrive Assessment: Date of Thrive Assessment Date Thrive assessed 07/11/24 07/11/24 11:23 Currently or been in a relationship where the following occur: No concerns reported Const Other: General: no acute distress, well developed, alert and awake Nutritional Appearance: well nourished Orientation/consciousness: patient oriented x3 HENMT Head: Yes normocephalic and Yes atraumatic Ears: hearing grossly normal bilaterally and TM's normal bilaterally General nose exam: Normal external nose present and Normal nares present Mouth: Normal oral and palatal mucosa present and moist mucous membranes Eyes Pupils: Equal, round and reactive pupils present and Pupil accommodation reflex normal EOM: EOMs intact bilaterally Neck Neck: Yes normal visual inspection, Yes no lymphadenopathy Thyroid: Thyroid normal Lymphatic: no lymphadenopathy noted Chest Chest palpation & inspection: normal inspection of the chest Resp Effort & Inspection: normal respiratory effort Auscultation: clear to auscultation bilaterally Cardio Rate: regular rate Rhythm: regular rhythm Heart sounds: S1 normal heart sound present, S2 normal heart sound present, no gallops, no murmurs and no rubs GI Palpation (GI): Abdomen large and rounded, soft and nontender to palpation Auscultation: normal bowel sounds General: Yes no CVA tenderness Back/Spine/Pelvis Back: no CVA tenderness Cervical Spine: cervical ROM normal and No Cervical spine tenderness Thoracic/Lumbar Spine: No lumbar pain with palpation Other: left shoulder post surgery in sling Skin General: warm and dry. Normal skin color. Normal skin turgor Trauma: Left nostril Nails: normal Neuro General: patient oriented x3, gait normal Cranial nerves: Yes Equal, round and reactive pupils present Cognition (Neuro): normal cognition Gait exam (Neuro): Normal gait present Extrem General: Yes normal to inspection, No edema and No calf tenderness Psych Appearance: grossly normal Affect: normal affect Attitude: cooperative Thought process: Normal thought process present Coding Level of Care Code Est Pt Level 4 (58184) Diagnoses Morbid obesity E66.01 Blood pressure elevated without history of HTN R03.0 Abrasion T14.8XXA Additional Codes SHAYY-7 Assessment Billing - SHAYY-7 Assessment Tool: SHAYY-7 Assessment 86543 ([id number]) PHQ-9 - 31346 - PHQ-9 Billing: Yes ([id number]) Time Spent (min) 36 Assessment & Plan Assessment & Plan (1) Morbid obesity: Code(s): E66.01 - Morbid (severe) obesity due to excess calories Category: Medical Plan: Referred patient to [facility] weight management. Patient would like to be started on GLP 1 Discussed with the patient to continue making dietary modifications into stay active as tolerated (2) Blood pressure elevated without history of HTN: Code(s): R03.0 - Elevated blood-pressure reading, without diagnosis of hypertension Category: Medical Plan: Patient reports that it was placed on blood pressure medication because he was having pain from his left shoulder Reports that after surgery he has not use the blood pressure medication and his blood pressure has been well-controlled Blood pressure is 138/68 today in office. Patient reports that this was without medication for 3 months and that its probably increased some due to walking in We will continue to monitor (3) Abrasion: Code(s): T14.8XXA - Other injury of unspecified body region, initial encounter Category: Medical Plan: Patient had a small abraded area in the left nostril from picking his nose Mupirocin ointment ordered. Instructed patient to use a Q-tip to apply to the area Orders: Referrals Medical Weight Management Referral E66.01 - Morbid (severe) obesity due to excess calories Medications: New mupirocin 2% 1 appl topical BID 15 grams 0RF
[2024-07-11 11:15] VITALS: BP 138/68; PULSE 88; TEMP 36.3; O2SAT 96; BMI 45.0
== END 2024-07-11 11:51 | disposition home or self-care (01) ==
PROVIDERS: PCP Internal Medicine
DX: R03.0 Elevated blood-pressure reading, without diagnosis of hypertension (principal); E66.01 Morbid (severe) obesity due to excess calories; T14.8XXA Other injury of unspecified body region, initial encounter; Z68.42 Body mass index [BMI] 45.0-49.9, adult

== ENCOUNTER → 2024-07-11 10:46 | Outpatient (BNVA) | payer OTHER, SELFPAY | PROVIDERS: PCP Internal Medicine | DX: E66.01 Morbid (severe) obesity due to excess calories (principal); I10 Essential (primary) hypertension; S00.31XA Abrasion of nose, initial encounter; Z79.899 Other long term (current) drug therapy; X58.XXXA Exposure to other specified factors, initial encounter; Y93.9 Activity, unspecified; Y92.9 Unspecified place or not applicable; Y99.9 Unspecified external cause status | CPT/HCPCS: 96127 ==

== ENCOUNTER 2024-07-13 20:16 | Emergency (ER) | payer OTHER, MEDICAID, SELFPAY ==
[2024-07-13 20:19] VITALS: BP 148/77; PULSE 81; RESP 20; O2SAT 99; BMI 44.6
--- NOTE | 2024-07-13 20:23 | ED_ITS ---
HPI - General Adult General Chief complaint: General Medical Stated complaint: nasal infection Related Data Home Medications ?Medication ?Instructions ?Recorded ?Confirmed tirzepatide (weight loss) 2.5 mg subcut 07/25/24 mg/0.5 mL subcutaneous pen injector (Zepbound) Previous Rx's ?Medication ?Instructions ?Recorded cetirizine 10 mg tablet (Zyrtec) 10 mg PO DAILY PRN allergy 12/17/23 symptoms #30 tabs albuterol sulfate 90 mcg/actuation 2 puff inhalation Q4-6H PRN 03/04/24 aerosol inhaler (Proventil HFA) Shortness Of Breath #8.5 grams esomeprazole magnesium 20 mg 20 mg PO DAILY #90 caps 06/06/24 capsule,delayed release (Nexium) mupirocin 2 % topical ointment 1 appl topical BID #15 grams 07/11/24 Allergies Allergy/AdvReac Type Severity Reaction Status Date / Time No Known Allergies Allergy Verified 07/25/24 13:33 PMFSH Past Medical History Medical History Obesity LFT elevation Scalp laceration Collar bone fracture Surgical History History of arthroplasty of left shoulder History of facial surgery Family History Family History Father Lung cancer Mother Gallbladder cancer Social History Social History Housing: Apartment Alcohol intake: current Alcohol intake frequency: holidays/special occasions only Comment: once Q 3 months, 6 months Patient Tobacco Use Status: Former Tobacco user Tobacco use type: Cigarette Years Smoked: quit 2016 smoker for 8 years 1/2 pack a day NO cigarettes 2014. 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 He had a laceration to the inside of his nostril and was treated with mupirocin. On exam he appears to have a small abscess to the left nostril Medications Administered Discontinued Medications Generic Name Dose Route Start Last Admin Trade Name Freq PRN Reason Stop Dose Admin Acetaminophen 650 mg 07/14/24 01:05 07/14/24 01:08 Acetaminophen 325 Mg Tablet PO 07/14/24 01:06 650 mg ONCE ONE Administration Discharge Plan Discharge Clinical Impression: Nasal abscess Patient Disposition: Left W/O Completing Treatment Prescriptions: No Action cetirizine [Zyrtec] 10 mg tablet 10 mg PO DAILY PRN (Reason: allergy symptoms) Qty: 30 1RF albuterol sulfate [Proventil HFA] 90 mcg/actuation HFA aerosol inhaler 2 puff inhalation Q4-6H PRN (Reason: Shortness Of Breath) Qty: 8.5 0RF esomeprazole magnesium [Nexium] 20 mg capsule,delayed release(DR/EC) 20 mg PO DAILY Qty: 90 0RF Zepbound 2.5 mg/0.5 mL pen injector subcut mupirocin 2 % ointment 1 appl topical BID Qty: 15 0RF Discharge Date/Time: 07/14/24 11:17
[2024-07-14] MEDS: Acetaminophen 325 MG TABLET 650 MG PO (01:08)
== END 2024-07-14 11:17 | disposition left against medical advice (07) ==
PROVIDERS: Emergency Provider Emergency Medicine; PCP Internal Medicine
DX: J34.0 Abscess, furuncle and carbuncle of nose (principal); J34.89 Other specified disorders of nose and nasal sinuses
CPT/HCPCS: 96127; 99282; 99283

== ENCOUNTER 2024-07-14 11:40 | Outpatient (AMB) | payer OTHER, MEDICAID, SELFPAY ==
[2024-07-14 11:49] VITALS: BP 138/76; PULSE 85; O2SAT 98; BMI 45.5
--- NOTE | 2024-07-14 11:49 | MHC.PC.OV ---
Vital Signs 07/14/24 11:49 Height 5 ft 11 in Weight 326 lb BMI 45.5 BP 138/76 Blood Pressure Location Lt brachial Position Sitting Pulse 85 Pulse Source Pulse Oximeter Pulse Oximetry (%) 98 Oxygen Delivery Method Room Air Intake Visit Reasons: Nasal Abscess Allergies No Known Allergies Allergy (Verified 07/14/24 11:50) Tobacco use date assessed: 07/11/24 Dental Screening Dental Screen Date: 07/11/24 HPI Nasal Abscess HPI Details L shoulder surgery Dr. Reed 06/22/2024 had a cyst on the back L rotator cuff repair.The patient is a 34-year-old male presenting with an acute nasal abscess and following up on post-operative shoulder pain. The nasal abscess started approximately a week ago with initial discomfort resembling a pimple inside the nose. The condition further escalated, causing significant pain and swelling. The patient attempted self-management without success and observed no improvement after initial use of Mupirocin ointment recommended by a healthcare provider. The patient expressed concern about potential complications if the abscess burst and the risk of a systemic infection. Recently, the patient sought care at urgent care, where an Amoxicillin prescription was provided, though not yet picked up. Simultaneously, the patient reported ongoing therapy for post-operative shoulder pain, with recent surgery on May 22. The first physical therapy session occurred last Thursday with activities intended to enhance flexibility without exacerbating discomfort. The patient attends therapy twice weekly, observing gradual improvements but remaining cautious to avoid overexerting the shoulder. Past medical history includes morbid obesity, hepatic cytosis, GERD, and hypertension, which continue to impact overall health management and compliance with medical advice. The patient is actively pursuing weight loss strategies and seeking assistance with lifestyle modifications. [facility] Medical History Obesity LFT elevation Scalp laceration Collar bone fracture Surgical History History of arthroplasty of left shoulder History of facial surgery Family History Father Lung cancer Mother Gallbladder cancer Social History Housing: Apartment Alcohol intake: current Alcohol intake frequency: holidays/special occasions only Comment: once Q 3 months, 6 months Patient Tobacco Use Status: Former Tobacco user Tobacco use type: Cigarette Years Smoked: quit 2016 smoker for 8 years 1/2 pack a day NO cigarettes 2014. 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 1. Little interest or pleasure in doing things: not at all 2. Feeling down, depressed, or hopeless: not at all 3. Trouble falling or staying asleep, or sleeping too much: not at all 4. Feeling tired or having little energy: not at all 5. Poor appetite or overeating: not at all 6. Feeling bad about yourself - or that you are a failure or have let yourself or your family down: not at all 7. Trouble concentrating on things, such as reading the newspaper or watching television: not at all 8. Moving or speaking so slowly that other people could have noticed. Or the opposite - being so fidgety or restless that you have been moving around a lot more than usual: not at all 9. Thoughts that you would be better off or of hurting yourself in some way: not at all Total score: 0 Depression Screening Interpretation: Negative Depression Screening Done: Yes 38780 - PHQ-9 Billing: Yes Source: Developed by Drs. Rahul Sidhu, Jose Francisco Lucio and colleagues, with an educational jose from [employer]. Thrive Questionnaire Date Thrive assessed: 07/11/24 AUDIT C Alcohol Use Questionnaire (AUDIT-C) 2. How many drinks containing alcohol do you have on a typical day when you are drinking?: 1 or 2 3. How often do you have six or more drinks on one occasion?: Less than monthly Total Score: 1 SHAYY-7 AMB Questionnaire SHAYY-7 Date SHAYY - 7 assessed: 07/11/24 Source: Developed by Drs. Rahul Sidhu, Jose Francisco Lucio and colleagues, with an educational jose from [employer]. Physical exam (Primary Care) Vital Signs: Last Vital Signs Pulse 85 07/14/24 11:49 BP 138/76 07/14/24 11:49 Pulse Ox 98 07/14/24 11:49 Oxygen Delivery Method Room Air 07/14/24 11:49 BMI result Body Mass Index 45.5 Tobacco/Smoking Status: Tobacco use Status Tobacco use date assessed 07/11/24 07/14/24 11:57 Patient Tobacco Use Status Former Tobacco user 07/14/24 11:57 Tobacco use type Cigarette 07/14/24 11:57 e-Cigarette/Vaping Use Never Used 07/14/24 11:57 PHQ-9: PHQ-9 Score PHQ-9: Total score 0 07/14/24 11:57 Depression Screening Interpretation: Negative Thrive Assessment: Date of Thrive Assessment Date Thrive assessed 07/11/24 07/14/24 11:57 [facility] Face images: 1. 1 cm mass inner nares Coding Level of Care Code Est Pt Level 3 (05620) Diagnoses Nasal abscess J34.0 Additional Codes PHQ-9 - 12316 - PHQ-9 Billing: Yes ([id number]) Assessment & Plan Assessment & Plan (1) Nasal abscess: Comment: L side nares Code(s): J34.0 - Abscess, furuncle and carbuncle of nose Category: Medical Plan: urgent center visit and was rx Augmentin 875 advised to get the prescription. Will send urgent referral to ear nose and throat Plan - Nasal Abscess: Encourage the patient to promptly collect the Amoxicillin prescription from [facility] and begin the antibiotic course. Monitor response to treatment and advise the patient to report any adverse reactions, such as diarrhea, potentially secondary to antibiotic use. A referral to an ENT specialist was discussed but awaits scheduling for further assessment if the abscess does not improve. - Post-operative Shoulder Pain: Continue current physical therapy regimen, emphasizing gradual improvement in range of motion without strain. Advise against actions that may exert undue pressure on the surgical site. - Hypertension, GERD, Hepatic steatosis, and Obesity: Reinforce adherence to prescribed medical treatment for chronic conditions. Discuss the importance of weight management and support continued participation in a structured weight loss program. - Preventative Care: No current issues were explicitly discussed, but encourage ongoing monitoring and management of chronic conditions. Recommend follow-up for any emerging symptoms or health alterations. Orders: Referrals Ear/Nose/Throat Referral J34.0 - Abscess, furuncle and carbuncle of nose
--- OUTSIDE RECORDS SUMMARY | 2024-07-14 12:55 | XMS_ITS | Patient Health Record ---
Author Organization [facility] Address [address] [place] [address] Care Team Providers Care Caul Fat Puller Name Role Phone LINDA ERICKSON Primary Care [...] of rotator cuff of left shoulder (disorder) (09217976393967 09) Unspecified rotator cuff tear or rupture of left shoulder, not specified as traumatic (M75.102) Active confirmed Problem 85005895 Sprain of medial collateral ligament of right knee, sequela (S83.411S) Active confirmed Problem History of nicotine dependence (75873160453224 9101) History of nicotine dependence (Z87.891) Active confirmed Problem Cannabis dependence (19859907) Cannabis dependence (F12.20) Active confirmed Problem 522219842 Morbid obesity with body mass index of 40.0-49.9 (E66.01) Active confirmed Problem 6029374 Closed nondisplaced fracture of acromial end of [...] HEPATITIS PANEL, ACUTE W/REFLEX TO CONFI RMATION (71084) 10/17/2021 COMPREHENSIVE METABOLIC PANEL (15220) Insurance Providers Payer Name Payer Address Payer Phone Subscriber Number Group Number Insured Name Patient Relationship to Insured Coverage Start Date Coverage End Date [employer] [address] [address] [place] [phone] [id number] YASIR MOYA Self - patient is the insured Medical (General) History Medical History History ICD Code Unspecified rotator cuff tea r or rupture of left shoulder, not specified as traumatic M75.102 History of nicotine dependence Z87.891 Cannabis dependence F12.20
== END 2024-07-14 13:18 | disposition home or self-care (01) ==
PROVIDERS: PCP Internal Medicine; Visit Provider Internal Medicine
DX: J34.0 Abscess, furuncle and carbuncle of nose (principal)

== ENCOUNTER 2024-07-25 13:23 | Outpatient (AMB) | payer OTHER, SELFPAY ==
--- NOTE | 2024-07-25 13:30 | MHC.OFFVIS ---
Vital Signs 07/25/24 13:31 Height 5 ft 11 in Weight 326 lb BMI 45.5 Intake Visit Reasons: PO LT RTC repair 06/22/24 NE Intake Note: Mansoor is a 34 year old left hand dominant male who presents today for a post operative appointment about 6 weeks s/p Left Rotator Cuff Repair 06/22/24. Patient reports that he is doing well, he is taking mortin PRN. Denies numbness and tingling. He has been attending [place] at [facility] [place] [facility] Allergies No Known Allergies Allergy (Verified 07/25/24 13:33) HPI HPI PO LT RTC repair 06/22/24 NE: Details: 5 weeks s/p L RTC repair. He is doing well. He has started PT. He is wearing sling intermittently. [facility] Medical History Obesity LFT elevation Scalp laceration Collar bone fracture Surgical History History of arthroplasty of left shoulder History of facial surgery Family History Father Lung cancer Mother Gallbladder cancer Social History Housing: Apartment Alcohol intake: current Alcohol intake frequency: holidays/special occasions only Comment: once Q 3 months, 6 months Patient Tobacco Use Status: Former Tobacco user Tobacco use type: Cigarette Years Smoked: quit 2016 smoker for 8 years 1/2 pack a day NO cigarettes 2014. 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 He is doing PT and may D/C sling. F/u 6 weeks. Continue Regeneten protocol. Coding Level of Care Code Global (93161) Diagnoses Status post left rotator cuff repair Z98.890
[2024-07-25 13:31] VITALS: BMI 45.5
--- OUTSIDE RECORDS SUMMARY | 2024-07-25 15:44 | XMS_ITS | Patient Health Record ---
Author Organization [facility] Address [address] [place] [address] Care Team Providers Care Site Administrator Name Role Phone LINDA ERICKSON Primary Care [...] Problem Status W/U Status Risk Notes Problem 5584787 Closed nondisplaced fracture of acromial end of left clavicle, sequela (S42.035S) Active confirmed 2006 due to wrestling match in high school, but then found in 2009 that clavicle was broken and calcium build up; was told he may need surgery eventually; pain is only intermittent with certain movements; pt does not wish to pursue further treatment at this time due to time constraints Problem 650834808 Morbid obesity with body mass index of 40.0-49.9 (E66.01) Active confirmed Problem Cannabis dependence (03729048) Cannabis dependence (F12.20) Active confirmed Problem History of nicotine dependence (04608866076981 9101) History of nicotine dependence (Z87.891) Active confirmed Problem 53725724 Sprain of medial collateral ligament of right knee, sequela (S83.411S) Active confirmed Problem Nontraumatic rupture of muscle or tendon structure of rotator cuff of left shoulder (disorder) (97523441649072 09) Unspecified rotator cuff tear or rupture of left shoulder, not specified as traumatic (M75.102) Active confirmed Plan Of Treatment Pending Test Test Name Order Date Ultrasound : Abdomen 09/25/2021 X ray : Hip, left 09/25/2021 Future Test Test Name Order Date HEPATITIS PANEL, ACUTE W/REFLEX TO CONFI RMATION (44819) 10/17/2021 COMPREHENSIVE METABOLIC PANEL (87614) Insurance Providers Payer Name Payer Address Payer Phone Subscriber Number Group Number Insured Name Patient Relationship to Insured Coverage Start Date Coverage End Date [facility] [address] [address] [place] [phone] [id number] YASIR MOYA Self - patient is the insured Medical (General) History Medical History History ICD Code Unspecified rotator cuff tea r or rupture of left shoulder, not specified as traumatic M75.102 History of nicotine dependence Z87.891 Cannabis dependence F12.20
== END 2024-07-25 13:47 | disposition home or self-care (01) ==
PROVIDERS: PCP Internal Medicine; Visit Provider Orthopaedic Surgery
DX: Z98.890 Other specified postprocedural states (principal)
CPT/HCPCS: 99024

== ENCOUNTER → 2024-07-25 13:23 | Outpatient (BNVA) | payer OTHER, SELFPAY | PROVIDERS: PCP Internal Medicine; Visit Provider Orthopaedic Surgery ==

== ENCOUNTER 2024-08-16 07:36 | Outpatient (REF) | payer OTHER, MEDICAID, SELFPAY ==
--- NOTE | ~2024-08-16 | CT_ITS ---
CLINICAL HISTORY: SINONASAL POLYPS DEVIATED SEPTUM CT sinuses without contrast. COMPARISON: None FINDINGS: Intact appearance of the nasal bones and nasal septum. Baisden left deviation of the nasal septum Keros 2 variant of the olfactory groove. The frontal sinuses are clear and intact. The ethmoid sinuses are clear and intact. Minimal mucosal thickening present within the sphenoid sinus on the right. The bilateral maxillary sinuses are clear and intact. The maxillary ostium and infundibulum are widely patent bilaterally. No Sridhar cells. No air fluid levels present. No erosive or osseous changes identified. Bony orbits appear intact. Orbital soft tissues are unremarkable. Temporomandibular joints are intact. Visualized intracranial and remaining extracranial structures are unremarkable. IMPRESSION: 1. Deviation of the nasal septum to the left. 2. Minimal mucosal thickening present within the sphenoid sinus. This document has been electronically signed by: Kevyn Green MD on 08/16/2024 14:10:54
--- OUTSIDE RECORDS SUMMARY | 2024-08-16 07:40 | XMS_ITS | Patient Health Record ---
Author Organization [facility] Address [address] [place] [address] Care Team Providers Care Luster Repairer Name Role Phone LINDA ERICKSON Primary Care [...] Problem Status W/U Status Risk Notes Problem 0675245 Closed nondisplaced fracture of acromial end of [...] this time due to time constraints Problem 886541062 Morbid obesity with body mass index of 40.0-49.9 (E66.01) Active confirmed Problem Cannabis dependence (89007766) Cannabis dependence (F12.20) Active confirmed Problem History of nicotine dependence (82641749149708 9101) History of nicotine dependence (Z87.891) Active confirmed Problem 13278558 Sprain of medial collateral ligament of right knee, sequela (S83.411S) Active confirmed Problem Nontraumatic rupture of muscle or tendon structure of rotator cuff of left shoulder (disorder) (51279513938289 09) Unspecified rotator cuff tear or rupture of left shoulder, not specified as traumatic (M75.102) Active confirmed Plan Of Treatment Pending Test Test Name Order Date Ultrasound : Abdomen 09/25/2021 X ray : Hip, left 09/25/2021 Future Test Test Name Order Date HEPATITIS PANEL, ACUTE W/REFLEX TO CONFI RMATION (00804) 10/17/2021 COMPREHENSIVE METABOLIC PANEL (82085) Insurance Providers Payer Name Payer Address Payer Phone Subscriber Number Group Number Insured Name Patient Relationship to Insured Coverage Start Date [facility]age End Date [facility] [address] [address] [place] [address] [id number] YASIR MOYA Self - patient is the insured Medical (General) History Medical History History ICD Code Unspecified rotator cuff tea r or rupture of left shoulder, not specified as traumatic M75.102 History of nicotine dependence Z87.891 Cannabis dependence F12.20
== END 2024-08-16 07:37 | disposition home or self-care (01) ==
LOC: HO.CT 07:36
PROVIDERS: PCP Internal Medicine; Visit Provider Otolaryngology
DX: J33.0 Polyp of nasal cavity (principal); J34.2 Deviated nasal septum
CPT/HCPCS: 70486

== ENCOUNTER → 2024-08-16 07:39 | Outpatient (BNV) | payer OTHER, MEDICAID, SELFPAY | PROVIDERS: PCP Internal Medicine; Visit Provider Radiology Diagnostic Radiology | DX: J33.9 Nasal polyp, unspecified (principal) | CPT/HCPCS: 70486 ==

== ENCOUNTER 2024-09-12 12:52 | Outpatient (AMB) | payer OTHER, MEDICAID, SELFPAY ==
[2024-09-12 12:57] VITALS: BP 134/82; PULSE 64; O2SAT 96; BMI 40.5
--- NOTE | 2024-09-12 12:57 | MHC.PC.OV ---
Vital Signs 09/12/24 12:57 Height 5 ft 11 in Weight 290 lb 2 oz BMI 40.5 BP 134/82 Blood Pressure Location Lt brachial Position Sitting Pulse 64 Pulse Source Pulse Oximeter Pulse Oximetry (%) 96 Oxygen Delivery Method Room Air Intake Visit Reasons: blood pressure elevated, obesity Director Part Required: No Accompanied by: Self / Same As Patient Allergies No Known Allergies Allergy (Verified 09/12/24 12:58) Medication List - Last Reconciled 09/12/24 by Ralph Griffin MD albuterol sulfate 90 mcg/actuation (Proventil HFA) 2 puffs inhalation Q4-6H PRN cetirizine (Zyrtec) 10 mg PO DAILY PRN esomeprazole magnesium (Nexium) 20 mg PO DAILY mupirocin 2% 1 appl topical BID tirzepatide (weight loss) (Zepbound) 7.5 mg (0.5 mL) subcut QWEEK Tobacco use date assessed: 09/12/24 Dental Screening Dental Screen Date: 09/12/24 Did you have a dental visit in the last 12 months?: Yes Did you have a dental problem in the last 6 months where you did not have access to dental care?: No Was dental information given to patient?: Patient has dentist [facility] Medical History Obesity LFT elevation Scalp laceration Collar bone fracture Surgical History History of arthroplasty of left shoulder History of facial surgery Family History Father Lung cancer Mother Gallbladder cancer Social History Housing: Apartment Alcohol intake: current Alcohol intake frequency: holidays/special occasions only Comment: once Q 3 months, 6 months Patient Tobacco Use Status: Former Tobacco user Tobacco use type: Cigarette Years Smoked: quit 2015 smoker for 8 years 1/2 pack a day NO cigarettes 2014. 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 1. Little interest or pleasure in doing things: not at all 2. Feeling down, depressed, or hopeless: not at all 3. Trouble falling or staying asleep, or sleeping too much: not at all 4. Feeling tired or having little energy: not at all 5. Poor appetite or overeating: not at all 6. Feeling bad about yourself - or that you are a failure or have let yourself or your family down: not at all 7. Trouble concentrating on things, such as reading the newspaper or watching television: not at all 8. Moving or speaking so slowly that other people could have noticed. Or the opposite - being so fidgety or restless that you have been moving around a lot more than usual: not at all 9. Thoughts that you would be better off or of hurting yourself in some way: not at all Total score: 0 Depression Screening Interpretation: Negative Depression Screening Done: Yes 68462 - PHQ-9 Billing: Yes Source: Developed by Drs. Rahul Sidhu, Chioma Weller, Jose Francisco Valencia and colleagues, with an educational jose from [employer]. Thrive Questionnaire Date Thrive assessed: 09/12/24 I am a: Patient What is your living situation today?: I have a steady place to live Within the past 12 months, did the food you bought not last and you didn't have the money to get more?: Never true Within the past 12 months, did you worry whether your food would run out before you got money to buy more?: Never true Do you have trouble paying for medicines?: No Do you have trouble getting transportation to medical appointments?: No Do you have trouble paying your heating and electricity bill?: No Do you have trouble taking care of your child, family member or friend?: No Do you have trouble with day-to-day activities such as bathing, preparing meals, shopping, managing finances, etc.?: No Are you currently unemployed and looking for a job?: No Are you interested in more education?: No Please select the resources that you would like help with: None Currently or been in a relationship where the following occur: No concerns reported THRIVE Score: 0 AUDIT C Alcohol Use Questionnaire (AUDIT-C) 1. How often do you have a drink containing alcohol?: Monthly or less 2. How many drinks containing alcohol do you have on a typical day when you are drinking?: 1 or 2 3. How often do you have six or more drinks on one occasion?: Less than monthly Total Score: 2 SHAYY-7 AMB Questionnaire SHAYY-7 Date SHAYY - 7 assessed: 09/12/24 Feeling nervous, anxious, or on edge: 0 = Not at all Not being able to stop or control worryin = Not at all Worrying too much about different things: 0 = Not at all Trouble relaxin = Not at all Being so restless that it is hard to sit still: 0 = Not at all Becoming easily annoyed or irritable: 0 = Not at all Feeling afraid as if something awful might happen: 0 = Not at all Total SHAYY-7 score (0-4 normal; 5-9 mild; 10-14 moderate; 15-21 severe): 0 Source: Developed by Drs. Rahul Sidhu, Chioma Weller, Jose Francisco Valencia and colleagues, with an educational jose from [employer]. Physical exam (Primary Care) Vital Signs: Last Vital Signs Pulse 64 09/12/24 12:57 BP 134/82 09/12/24 12:57 Pulse Ox 96 09/12/24 12:57 Oxygen Delivery Method Room Air 09/12/24 12:57 BMI result Body Mass Index 40.5 Tobacco/Smoking Status: Tobacco use Status Tobacco use date assessed 09/12/24 09/12/24 13:05 Patient Tobacco Use Status Former Tobacco user 09/12/24 13:05 Tobacco use type Cigarette 09/12/24 13:05 e-Cigarette/Vaping Use Never Used 09/12/24 13:05 PHQ-9: PHQ-9 Score PHQ-9: Total score 0 09/12/24 13:05 Depression Screening Interpretation: Negative Thrive Assessment: Date of Thrive Assessment Date Thrive assessed 09/12/24 09/12/24 13:05 Currently or been in a relationship where the following occur: No concerns reported Const General: alert; No acute distress Eyes Conjunctivae: conjunctivae normal Resp Auscultation: clear to auscultation bilaterally Cardio Rate: regular rate Rhythm: regular rhythm GI Inspection: Yes normal to inspection Extrem General: Yes normal to inspection and No edema Coding Level of Care Code Est Pt Level 4 (01908) Complex EM visit Add On G2211 Diagnoses Morbid obesity E66.01 Status post left rotator cuff repair Z98.890 Hypertension I10 Hepatic steatosis K76.0 GERD (gastroesophageal reflux disease) K21.9 Additional Codes PHQ-9 - 51982 - PHQ-9 Billing: Yes ([id number]) Assessment & Plan Assessment & Plan (1) Morbid obesity: Code(s): E66.01 - Morbid (severe) obesity due to excess calories Category: Medical Plan: Patient on Zepbound (2) Status post left rotator cuff repair: Comment: May 2024 Code(s): Z98.890 - Other specified postprocedural states Category: Surgical Plan: Patient has been followed up by orthopedics (3) Hypertension: Code(s): I10 - Essential (primary) hypertension Category: Medical Plan: Decrease salt intake and exercise (4) Hepatic steatosis: Code(s): K76.0 - Fatty (change of) liver, not elsewhere classified Category: Medical Plan: Low-fat diet and exercise (5) GERD (gastroesophageal reflux disease): Code(s): K21.9 - Gastro-esophageal reflux disease without esophagitis Category: Medical Plan: Avoid the foods that causes that usually spicy foods, tomato products, juices, coffee, soda and foods that your sensitive to. After eating do not lie down, allow 3-4 hours before in lie down. And keep the head of bed above 30 degrees to avoid the acid from going up. Plan History of Present Illness The patient is a 34-year-old male presenting for follow-up on multiple conditions including weight management and post-surgical recovery. He has experienced a significant weight loss of 36 pounds, with medication aiding in this process. The patient has hepatic steatosis and GERD in his history, alongside essential hypertension. He reports taking medication that was part of a weight loss program; his current plan includes increasing the dosage gradually to prevent nausea. He attended follow-up for a nasal abscess, and imaging indicated a nasal septal deviation with mild mucosal thickening. A left rotator cuff tear was surgically repaired on June 22, 2024, and rehabilitation is ongoing. He notes some functional limitation but continues with physical therapy. His last laboratory studies reported normal ranges in several areas, except for elevated HDL cholesterol. Health Maintenance - Encouraged low-fat diet, reduced salt intake, and regular exercise for weight management and control of hypertension - Active engagement in physical therapy for rehabilitation of left shoulder post-surgery - Ongoing management of GERD with medication - Blood pressure monitoring and adjustment of medication as needed Social History - Engaged in a weight loss program with medication assistance - Actively participating in physical therapy - Utilizes insurance for medication and medical care management Review of Systems - Constitutional: Reports significant weight loss - EENT: Reports nasal abscess; mild mucosal thickening of the sinus confirmed - Musculoskeletal: Reports limitations with left shoulder mobility; undergoing physical therapy Physical Exam Results - Labs: Normal blood count, electrolytes, renal function, blood sugar, and thyroid function; elevated HDL cholesterol - Imaging: X-ray showing nasal septal deviation with mild mucosal thickening Plan We addressed the patient's ongoing management of obesity, hypertension, GERD, nasal conditions, and post-surgical recovery. Continue the weight loss protocol, gradually increasing the medication dosage. The patient will adhere to a low-salt, low-fat diet with regular exercise for blood pressure management, monitoring, and medication adherence for GERD. Nasal issues require ongoing ENT follow-up. Physical therapy will proceed to further improve shoulder mobility, with monitoring of any limitations. Patient was informed and verbally consented to the use of an ambient scribe for clinic note documentation during this visit. Discussion Notes We discussed the continuation of the weight management regimen with a cautious approach to medication dosage increases to mitigate nausea. I advised on dietary and exercise interventions to manage hypertension effectively. We also reviewed the importance of continued medication adherence for GERD. Imaging results for nasal septal deviation and thickening were discussed, with a recommendation for ENT follow-up. Post-operative physical therapy for the shoulder was acknowledged, emphasizing home exercise engagement. We established a follow-up in three months, ensuring open communication channels for any interim concerns. Patient Instructions - Continue current weight loss medication; plan to increase to 10 mg next month - Follow a low-salt, low-fat diet and engage in regular physical activity - Continue GERD medication as prescribed - Attend all scheduled physical therapy sessions and practice home exercises regularly - Follow up with ENT as needed - Monitor blood pressure regularly and report any significant changes - Return for follow-up in three months or sooner if any new symptoms or concerns arise Medications: New tirzepatide (weight loss) (Zepbound) 7.5 mg (0.5 mL) subcut QWEEK 2 mL 0RF tirzepatide (weight loss) (Zepbound) 7.5 mg (0.5 mL) subcut QWEEK 2 mL 0RF
== END 2024-09-12 13:21 | disposition home or self-care (01) ==
LOC: HO.HMCH 12:53
PROVIDERS: PCP Internal Medicine; Visit Provider Internal Medicine
DX: I10 Essential (primary) hypertension (principal); E66.01 Morbid (severe) obesity due to excess calories; Z68.41 Body mass index [BMI] 40.0-44.9, adult; Z98.890 Other specified postprocedural states; K76.0 Fatty (change of) liver, not elsewhere classified; K21.9 Gastro-esophageal reflux disease without esophagitis

== ENCOUNTER → 2024-09-12 12:52 | Outpatient (BNVA) | payer OTHER, MEDICAID, SELFPAY | PROVIDERS: PCP Internal Medicine; Visit Provider Internal Medicine | DX: E66.01 Morbid (severe) obesity due to excess calories (principal); Z68.41 Body mass index [BMI] 40.0-44.9, adult; I10 Essential (primary) hypertension; K76.0 Fatty (change of) liver, not elsewhere classified; K21.9 Gastro-esophageal reflux disease without esophagitis | CPT/HCPCS: 96127 ==

== ENCOUNTER 2024-09-22 13:14 | Outpatient (AMB) | payer OTHER, MEDICAID, SELFPAY ==
[2024-09-22 13:19] VITALS: BMI 39.7
--- NOTE | 2024-09-22 13:19 | MHC.OFFVIS ---
Vital Signs 09/22/24 13:19 Height 5 ft 11 in Weight 285 lb BMI 39.7 Handedness Left Intake Visit Reasons: OV LT RTC repair 06/22/24 NE Intake Note: Mansoor is a 34 year old left hand dominant male who presents today for a post operative left rotator cuff repair, DOS 06/22/24. Patient was last seen with NE, he is to continue with PT and follow up in 6 weeks. Patient reports he is feeling pretty good. Yesterday he said he tripped going up the stairs and stopped his fall with his left arm. He has been wearing the brace for alleviation of pain and states it has been helpful. Allergies No Known Allergies Allergy (Verified 09/22/24 13:21) HPI HPI OV LT RTC repair 06/22/24 NE: Details: Patient is a 34-year-old male who presents to the office today for follow-up status post left shoulder rotator cuff repair performed on 06/22/[address] Reed. Patient states that he was doing very well and continues to attend physical therapy. However, yesterday he was going to run up the stairs when he fell bracing himself with the left upper extremity. Since then he has experienced an increase in pain in the decrease in motion. He does have a brace that he obtained [id number] that is helping some with pain. [facility] Medical History Obesity LFT elevation Scalp laceration Collar bone fracture Surgical History History of arthroplasty of left shoulder History of facial surgery Family History Father Lung cancer Mother Gallbladder cancer Social History Housing: Apartment Alcohol intake: current Alcohol intake frequency: holidays/special occasions only Comment: once Q 3 months, 6 months Patient Tobacco Use Status: Former Tobacco user Tobacco use type: Cigarette Years Smoked: quit 2015 smoker for 8 years 1/2 pack a day NO cigarettes 2014. 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 Pain with cross-body reach. NVI. Assessment & Plan Assessment & Plan (1) Status post left rotator cuff repair: Comment: May 2024 Code(s): Z98.890 - Other specified postprocedural states Category: Surgical Plan Patient is a 34-year-old male who presents to the office today for follow-up status post left shoulder rotator cuff repair performed on 06/22/[address] Reed. Patient states that he was doing very well and continues to attend physical therapy. However, yesterday he was going to run up the stairs when he fell bracing himself with the left upper extremity. Since then he has experienced an increase in pain in the decrease in motion. He does have a brace that he obtained [id number] that is helping some with pain. While in the office today, we discussed continuation of physical therapy after the most recent injury has set the patient back slightly. I would like them to continue to work on his range of motion and strengthening. A new order has been placed today while in the office. He will follow up in 4-6 weeks after continuation of physical therapy, sooner if needed. Coding Level of Care Code Global (54204) Diagnoses Status post left rotator cuff repair Z98.890
--- OUTSIDE RECORDS SUMMARY | 2024-09-22 15:41 | XMS_ITS | Patient Health Record ---
Author Organization [facility] Address [address] [place] [address] Care Team Providers Care Biomedical Engineering Aide Name Role Phone LINDA ERICKSON Primary Care [...] of rotator cuff of left shoulder (disorder) ([id number]) Unspecified rotator cuff tear or rupture of left shoulder, not specified as traumatic (M75.102) Active confirmed Problem 90057013 Sprain of medial collateral ligament of right knee, sequela (S83.411S) Active confirmed Problem History of nicotine dependence ([id number] 9101) History of nicotine dependence (Z87.891) Active confirmed Problem Cannabis dependence (01878678) Cannabis dependence (F12.20) Active confirmed Problem 861247697 Morbid obesity with body mass index of 40.0-49.9 (E66.01) Active confirmed Problem 6750729 Closed nondisplaced fracture of acromial end of [...] HEPATITIS PANEL, ACUTE W/REFLEX TO CONFI RMATION (94941) 10/17/2021 COMPREHENSIVE METABOLIC PANEL (76786) Insurance Providers Payer Name Payer Address Payer Phone Subscriber Number Group Number Insured Name Patient Relationship to Insured Coverage Start Date Coverage End Date [facility] [address] [address] [place] [address] [id number] YASIR MOYA Self - patient is the insured Medical (General) History Medical History History ICD Code Unspecified rotator cuff tea r or rupture of left shoulder, not specified as traumatic M75.102 History of nicotine dependence Z87.891 Cannabis dependence F12.20
--- OUTSIDE RECORDS SUMMARY | 2024-09-22 15:41 | XMS_ITS ---
Author Name [facility] Organization Unknown Encounters Encounter Type Encounter Reason Primary Diagnosis Location Date Ambulatory [facility] 10/25/2023 Ambulatory [facility] 09/28/2023
--- OUTSIDE RECORDS SUMMARY | 2024-09-22 15:41 | XMS_ITS | Clinical Summary ---
Author Organization [address] [place] [address] Address [address] [place] [address] Phone Care Team Providers Care Internet Network Specialist Name Role Phone Ralph Griffin MD Primary Care Provider [phone] Social History Tobacco Use Types Packs/Day Years Used Date Smoking Tobacco: Never Assessed Sex and Gender Information Value Date Recorded Sex Assigned at Not on file Legal Sex Male 2:39 PM EDT Gender Identity Not on file Sexual Orientation Not on file Plan of Treatment Upcoming Encounters Date Type Department Care Team ([facility] Contact Info) Description 12/27/2024 8:30 AM EDT Consult Bariatric Surgery [address] [address] Sofía Nunez PA [address] [address] Health Maintenance Due Date Last Done Comments DTaP,Tdap,and Td Vaccines (1 - Tdap) 2008 Hepatitis B Vaccines (1 of 3 - 19+ 3-dose series) 2008 COVID-19 Vaccine ( - 2023-2 5 season) 2024 Cholesterol Screening (Lipid Panel) 09/13/2024 Depression Screening 09/13/2024 HIV Screening 09/13/2024 Hepatitis C Screening 09/13/2024 Social Influencers of Health Screening 09/13/2024 Influenza Vaccine (Season Ended) 2025 HIB Vaccines Aged Out No longer eligi ble based on patient's age to complete this topic HPV Vaccines Aged Out No longer eligi ble based on patient's age to complete this topic Hepatitis A Vaccines Aged Out No long er eligible based on patient's age to complete this topic IPV Vaccines Aged Out No longer eligi ble based on patient's age to complete this topic MMR Vaccines Aged Out No longer eligi ble based on patient's age to complete this topic Meningococcal ACWY Vaccine Aged Out N o longer eligible based on patient's age to complete this topic Meningococcal B Vaccine Aged Out No l onger eligible based on patient's age to complete this topic Pneumococcal Vaccine: Pediat rics (0 to 5 Years) and At-Risk Patients (6 to 64 Years) Aged Out No longer eligible b ased on patient's age to complete this topic RSV Immunization Patients Un malcolm 20 months Aged Out No longer eligible b ased on patient's age to complete this topic Varicella Vaccines Aged Out No longer eligible based on patient's age to complete this topic Insurance [employer] Care Teams Internet Network Specialist Relationship Specialty Start Date End Date Ralph Griffin MD [address] [place] [address] [address] [facility] [place] [address] PCP - General Internal Medicine 09/12/24
== END 2024-09-22 13:52 | disposition home or self-care (01) ==
LOC: HO.HOS 13:14
PROVIDERS: PCP Internal Medicine; Visit Provider Physician Assistant
DX: Z47.89 Encounter for other orthopedic aftercare (principal); S46.012D Strain of muscle(s) and tendon(s) of the rotator cuff of left shoulder, subsequent encounter
CPT/HCPCS: 99213

== ENCOUNTER → 2024-09-22 13:14 | Outpatient (BNVA) | payer OTHER, MEDICAID, SELFPAY | PROVIDERS: PCP Internal Medicine; Visit Provider Physician Assistant ==

== ENCOUNTER 2024-09-29 10:07 | Outpatient (RCR) | payer OTHER, MEDICAID, SELFPAY ==
--- NOTE | 2024-07-08 09:56 | MHC.PT.EP ---
[facility] [place] [facility] [place] [facility] [place] [facility] [address] Jailyn Charles [address] [phone] F: [phone] F: [phone] F: [phone] F: [phone] Physical Therapy Plan of Care Date of Evaluation: 07/08/24 Date of Surgery: 06/22/24 Diagnosis: status post left rotator cuff repair (RL) Assessment: pt is a 34 y/o male presenting to physical therapy w/ referring diagnosis of status post left rotator cuff repair. pt underwent Regenten collagen patch to supraspinatus tendon, DCE, and bursectomy on 06/22/24. Impairments include pain, decreased range of motion, decreased strength, impaired functional mobility, impaired postural awareness, and altered ambulation mechanics. pt is a good candidate for skilled PT due to age, potential remediation of impairments, typical disease/condition progression and prognosis, comorbidities, and motivation. pt would benefit from skilled PT intervention to provide a tailored strengthening and stretching exercise program, functional training, gait training, postural re-training, neuromuscular re-education, modalities as needed for pain, equipment safety demonstration. Frequency and Duration: The patient will be seen 2x/wk for 10 wks Short Term Goals: pt will be I w/ HEP to promote self-management of condition. pt will improve L shoulder ABD to at least 60* to promote progression of post-op protocol. Usp Goals: pt will report a statistically significant improvement in self-reported outcome measure, SPADI, to promote return to PLOF. pt will demo proper lifting mechanics w/ 50# object w/o verbal cueing to promote return to work-related tasks. Treatment Plan: Modalities to reduce pain, spasms and effusion. Manual therapy to restore motion and function. Therapeutic exercise to improve strength and flexibility. Neuromuscular re-education for posture and balance. Therapeutic activities to return to functional activities of daily living. Electronically signed by: Belkys Bruce PT, DPT Please sign and return to therapist. Thank you for your referral.
--- NOTE | 2024-11-10 16:05 | MHC.PT.DC ---
[facility] [place] Office [place] Office [place] Office [address] Jailyn Charles 140 [facility] [phone] F: [phone] F: [phone] F: [phone] F: [phone] Physical Therapy Discharge Report Diagnosis: status post left rotator cuff repair (RL) Date of Surgery: 06/22/24 Date of Evaluation: 07/18/24 Date of Discharge: 11/10/24 Treatments to Date: 18 Cancellations to Date: 5 No Shows to Date: 3 Discharge Status: Improved Function Independent with HEP Discharge Summary: pt able to return to previous level today as his shoulder was not bothering him. He is not sure if he's going to make it for his last appt so we did SPADI (see above). Otherwise, pt is I w/ his HEP and feels he is able to perform most of his work duties w/ just muscle soreness. Anticipate D/C to next session if he is able to make it. Electronically signed by: Belkys Bruce PT, DPT Please sign and return to therapist. Thank you for your referral.
== END 2024-11-10 16:05 | disposition home or self-care (01) ==
LOC: HO.PT 10:07
PROVIDERS: PCP Internal Medicine; Visit Provider Physician Assistant
DX: Z98.890 Other specified postprocedural states (principal)
CPT/HCPCS: 97110; 97112; 97140; 97161; 97530

== ENCOUNTER 2024-11-03 11:05 | Outpatient (AMB) | payer OTHER, MEDICAID, SELFPAY ==
--- NOTE | 2024-11-03 11:15 | MHC.OFFVIS ---
Vital Signs 11/03/24 11:25 Height 5 ft 11 in Intake Visit Reasons: OV LT RTC repair 06/22/24 NE Intake Note: Mansoor is a 34 year old left hand dominant male who presents today for a follow up left rotator cuff repair, 06/22/24 NE. Patient reports he is doing well. He has been doing his own exercises at home and he is monitoring certain things to tolerance at work. Allergies No Known Allergies Allergy (Verified 11/03/24 11:25) HPI HPI OV LT RTC repair 06/22/24 NE: Details: Mr. Mathews is a 34-year-old male status post left shoulder rotator cuff repair performed on 06/22/[address] Reed. Overall the patient is doing very well. He states that she has finished all physical therapy sessions. He has been attending the gym and performing weightlifting activities. He is very happy with his recovery with range of motion and strength. No other additional complaints. [facility] Medical History Obesity LFT elevation Scalp laceration Collar bone fracture Surgical History History of arthroplasty of left shoulder History of facial surgery Family History Father Lung cancer Mother Gallbladder cancer Social History Housing: Apartment Alcohol intake: current Alcohol intake frequency: holidays/special occasions only Comment: once Q 3 months, 6 months Patient Tobacco Use Status: Former Tobacco user Tobacco use type: Cigarette Years Smoked: quit 2016 smoker for 8 years 1/2 pack a day NO cigarettes 2014. 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 External rotation to end range. NVI. Assessment & Plan Assessment & Plan (1) Status post left rotator cuff repair: Comment: May 2024 Code(s): Z98.890 - Other specified postprocedural states Category: Surgical Plan Mr. Mathews is a 34-year-old male status post left shoulder rotator cuff repair performed on 06/22/[address] Reed. Overall the patient is doing very well. He states that she has finished all physical therapy sessions. He has been attending the gym and performing weightlifting activities. He is very happy with his recovery with range of motion and strength. No other additional complaints. Overall the patient is doing very well. At this time he will resume back to normal activities as tolerated. He will follow up with Orthopedics p.r.n., sooner if needed. Coding Level of Care Code Est Pt Level 3 (37190) Diagnoses Status post left rotator cuff repair Z98.890
--- OUTSIDE RECORDS SUMMARY | 2024-11-03 13:02 | XMS_ITS | Clinical Summary ---
Author Organization [address] [place] [address] Address [address] [place] [address] Phone Care Team Providers Care Openstack Cloud Consulting Architect Name Role Phone Ralph Griffin MD Primary Care Provider [phone] Social History Tobacco Use Types Packs/Day Years Used Date Smoking Tobacco: Never Assessed Sex and Gender Information Value Date Recorded Sex Assigned at Not on file Legal Sex Male 2:39 PM EDT Gender Identity Not on file Sexual Orientation Not on file Plan of Treatment Upcoming Encounters Date Type Department Care Team ([facility] Contact Info) Description 12/27/2024 8:30 AM EDT Consult Bariatric Surgery [address] [address] Sofía Nunez PA [address] [address] Health Maintenance Due Date Last [...] patient's age to complete this topic Insurance [employer] Care Teams Openstack Cloud Consulting Architect Relationship Specialty Start Date End Date Ralph Griffin MD [address] [place] [address] [address] [facility] [place] [address] PCP - General Internal Medicine 09/12/24
== END 2024-11-03 11:43 | disposition home or self-care (01) ==
LOC: HO.HOS 11:06
PROVIDERS: PCP Internal Medicine; Visit Provider Physician Assistant
DX: Z47.89 Encounter for other orthopedic aftercare (principal); S46.012D Strain of muscle(s) and tendon(s) of the rotator cuff of left shoulder, subsequent encounter
CPT/HCPCS: 99213

== ENCOUNTER → 2024-11-03 11:05 | Outpatient (BNVA) | payer OTHER, MEDICAID, SELFPAY | PROVIDERS: PCP Internal Medicine; Visit Provider Physician Assistant ==

== ENCOUNTER 2025-01-11 09:55 | Outpatient (AMB) | payer OTHER, MEDICAID, SELFPAY ==
[2025-01-11 09:58] VITALS: BP 110/68; PULSE 66; RESP 18; O2SAT 97; BMI 36.4
--- NOTE | 2025-01-11 09:58 | MHC.PC.OV ---
Vital Signs 01/11/25 09:58 Height 5 ft 11 in Weight 261 lb BMI 36.4 BP 110/68 Blood Pressure Location Lt brachial Position Sitting Respiration 18 Pulse 66 Pulse Source Pulse Oximeter Temp Source Temporal Artery Scan Pulse Oximetry (%) 97 Oxygen Delivery Method Room Air Intake Visit Reasons: obesity Water Plant Operator Required: No Accompanied by: Self / Same As Patient Allergies No Known Allergies Allergy (Verified 01/11/25 09:59) Tobacco use date assessed: 09/12/24 Dental Screening Dental Screen Date: 01/11/25 Did you have a dental visit in the last 12 months?: Yes Did you have a dental problem in the last 6 months where you did not have access to dental care?: No Was dental information given to patient?: Patient has dentist [facility] Medical History Obesity LFT elevation Scalp laceration Collar bone fracture Surgical History History of arthroplasty of left shoulder History of facial surgery Family History Father Lung cancer Mother Gallbladder cancer Social History Housing: Apartment Alcohol intake: current Alcohol intake frequency: holidays/special occasions only Comment: once Q 3 months, 6 months Patient Tobacco Use Status: Former Tobacco user Tobacco use type: Cigarette Years Smoked: quit 2015 smoker for 8 years 1/2 pack a day NO cigarettes 2014. 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 1. Little interest or pleasure in doing things: not at all 2. Feeling down, depressed, or hopeless: not at all 3. Trouble falling or staying asleep, or sleeping too much: not at all 4. Feeling tired or having little energy: not at all 5. Poor appetite or overeating: not at all 6. Feeling bad about yourself - or that you are a failure or have let yourself or your family down: not at all 7. Trouble concentrating on things, such as reading the newspaper or watching television: not at all 8. Moving or speaking so slowly that other people could have noticed. Or the opposite - being so fidgety or restless that you have been moving around a lot more than usual: not at all 9. Thoughts that you would be better off or of hurting yourself in some way: not at all Total score: 0 Source: Developed by Drs. Rahul Sidhu, Chioma Weller, Jose Francisco Valencia and colleagues, with an educational jose from [email or web address]. Thrive Questionnaire Date Thrive assessed: 01/11/25 I am a: Patient What is your living situation today?: I have a steady place to live Within the past 12 months, did the food you bought not last and you didn't have the money to get more?: Never true Within the past 12 months, did you worry whether your food would run out before you got money to buy more?: Never true Do you have trouble paying for medicines?: No Do you have trouble getting transportation to medical appointments?: No Do you have trouble paying your heating and electricity bill?: No Do you have trouble taking care of your child, family member or friend?: No Do you have trouble with day-to-day activities such as bathing, preparing meals, shopping, managing finances, etc.?: No Are you currently unemployed and looking for a job?: No Are you interested in more education?: No Please select the resources that you would like help with: None Currently or been in a relationship where the following occur: No concerns reported THRIVE Score: 0 AUDIT C Alcohol Use Questionnaire (AUDIT-C) 1. How often do you have a drink containing alcohol?: Monthly or less Total Score: 1 SHAYY-7 AMB Questionnaire SHAYY-7 Date SHAYY - 7 assessed: 01/11/25 Feeling nervous, anxious, or on edge: 0 = Not at all Not being able to stop or control worryin = Not at all Worrying too much about different things: 0 = Not at all Trouble relaxin = Not at all Being so restless that it is hard to sit still: 0 = Not at all Becoming easily annoyed or irritable: 0 = Not at all Feeling afraid as if something awful might happen: 0 = Not at all Total SHAYY-7 score (0-4 normal; 5-9 mild; 10-14 moderate; 15-21 severe): 0 Source: Developed by Drs. Rahul Sidhu, Chioma Weller, Jose Francisco Valencia and colleagues, with an educational jose from [email or web address]. Physical exam (Primary Care) Vital Signs: Last Vital Signs Pulse 66 01/11/25 09:58 Resp 18 01/11/25 09:58 BP 110/68 01/11/25 09:58 Pulse Ox 97 01/11/25 09:58 Oxygen Delivery Method Room Air 01/11/25 09:58 BMI result Body Mass Index 36.4 Tobacco/Smoking Status: Tobacco use Status Tobacco use date assessed 09/12/24 01/11/25 10:03 Patient Tobacco Use Status Former Tobacco user 01/11/25 10:03 Tobacco use type Cigarette 01/11/25 10:03 e-Cigarette/Vaping Use Never Used 01/11/25 10:03 PHQ-9: PHQ-9 Score PHQ-9: Total score 0 01/11/25 10:45 Thrive Assessment: Date of Thrive Assessment Date Thrive assessed 01/11/25 01/11/25 10:03 Currently or been in a relationship where the following occur: No concerns reported Immunizations Boostrix Tdap 2.5 Lf unit-8 mcg-5 Lf/0.5 mL intramuscular syringe Performing Provider: Ralph Griffin MD [facility] [place] [facility] Administered by: ADEOLA Valdez on 01/11/25 10:44 Dose Route Admin Location Dispensed Lot Number Expiration Date FOR[facility]LY NAMED [facility] [employer] 0.5 mL IM Left Deltoid 0.5 mL [id number] 03/17/27 [id number] [employer] Total Dispensed Waste 0.5 mL 0 % VIS Given Date VIS Provided VIS Publication Date 01/11/25 Single Vaccine 20 Eligibility Eligibility Date Funding Source Not [facility] Eligible 01/11/25 Private Coding Level of Care Code Est Pt Level 4 (82805) Complex EM visit Add On G2211 Diagnoses Hypertension I10 Obesity (BMI 30-39.9) E66.9 GERD (gastroesophageal reflux disease) K21.9 Hepatic steatosis K76.0 Status post left rotator cuff repair Z98.890 Assessment & Plan Assessment & Plan (1) Hypertension: Code(s): I10 - Essential (primary) hypertension Category: Medical Plan: . Decrease salt intake and exercise patient has lost so much weight blood pressure is normal (2) Obesity (BMI 30-39.9): Code(s): E66.9 - Obesity, unspecified Category: Medical Plan: Continue with wegovy continue to be active eat healthy (3) GERD (gastroesophageal reflux disease): Code(s): K21.9 - Gastro-esophageal reflux disease without esophagitis Category: Medical Plan: Avoid the foods that causes that usually spicy foods, tomato products, juices, coffee, soda and foods that your sensitive to. After eating do not lie down, allow 3-4 hours before in lie down. And keep the head of bed above 30 degrees to avoid the acid from going up. (4) Hepatic steatosis: Code(s): K76.0 - Fatty (change of) liver, not elsewhere classified Category: Medical Plan: Continue with low-fat diet and exercise (5) Status post left rotator cuff repair: Comment: May 2024 Code(s): Z98.890 - Other specified postprocedural states Category: Surgical Plan: Continue to follow-up with orthopedics Plan History of Present Illness The patient is a 34-year-old male presenting for follow-up on obesity, hypertension, and gastroesophageal reflux disease. The patient has a history of obesity, with a significant weight loss of 60 pounds since June, attributed to lifestyle changes and medication. He is currently on Wegovy and has been advised to maintain an active lifestyle and healthy diet to support further weight loss. The patient has a history of hypertension, which is currently well-controlled with lifestyle modifications and weight loss. His blood pressure is reported to be normal at present. The patient reports experiencing gastroesophageal reflux disease, with occasional heartburn exacerbated by certain foods and medications. He has been advised to avoid spicy foods, tomato products, and to eat early in the day to manage symptoms. He uses Nexium as needed for symptom relief. The patient has a history of hepatic steatosis, which is being monitored. The patient underwent left rotator cuff repair in May 2024 and is following up with orthopedics. The patient has a deviated septum and has experienced a middle ear infection, which was previously treated. He reports using saline rinses to manage sinus symptoms. 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 [employer] - Exercise: Engages in regular physical activity and gym workouts - Weight management: Significant weight loss of 65 pounds, aiming for further reduction Review of Systems - Gastrointestinal: Reports occasional heartburn; denies nausea or vomiting - Cardiovascular: Denies chest pain or palpitations - Respiratory: Denies dyspnea or cough - Neurological: Denies headaches or dizziness - ENT: Reports post-nasal drip and sinus congestion; denies hearing loss Physical Exam - Cardiovascular: Heart auscultation performed, no abnormalities noted Results Plan The patient will continue with Wegovy for weight management and is encouraged to maintain an active lifestyle and healthy diet to support further weight loss. Blood pressure is currently normal, and the patient is advised to continue lifestyle modifications to maintain control. For gastroesophageal reflux disease, the patient is advised to avoid trigger foods and to use Nexium as needed for symptom relief. The patient is also advised to elevate the head during sleep and avoid eating close to bedtime to manage symptoms. The patient will follow up with orthopedics regarding the status post left rotator cuff repair. A tetanus vaccination was administered, and blood work is planned to monitor cholesterol, kidney, and liver function. The patient is advised to follow up with an ENT specialist for ongoing sinus issues and to ensure communication of findings to the primary care provider. Patient was informed and verbally consented to the use of an ambient scribe for clinic note documentation during this visit. Discussion Notes I discussed with the patient the importance of continuing Wegovy for weight management and maintaining an active lifestyle and healthy diet. We reviewed the management of gastroesophageal reflux disease, emphasizing dietary modifications and the use of Nexium as needed. I also advised on the importance of elevating the head during sleep and avoiding late meals. We discussed the need for follow-up with orthopedics for the rotator cuff repair and with an ENT specialist for sinus issues. The patient received a tetanus vaccination, and we planned blood work to monitor cholesterol, kidney, and liver function. Patient Instructions - Continue taking Wegovy as prescribed for weight management. - Maintain an active lifestyle and healthy diet. - Avoid foods that trigger heartburn and use Nexium as needed. - Elevate your head during sleep and avoid eating late at night. - Follow up with orthopedics and ENT as scheduled. - Complete the blood work as instructed, fasting for 8 hours prior. Orders: Orders Complete Blood Count Auto Diff Today K76.0 - Fatty (change of) liver, not elsewhere classified Comprehensive Met. Panel Today K76.0 - Fatty (change of) liver, not elsewhere classified Thyroid Stimulating Hormone Today K76.0 - Fatty (change of) liver, not elsewhere classified Vitamin B12 and Folate Today K76.0 - Fatty (change of) liver, not elsewhere classified T Spot TB Today K76.0 - Fatty (change of) liver, not elsewhere classified Rubeola IgG (Measles) Today K76.0 - Fatty (change of) liver, not elsewhere classified, Z02.0 - Encounter for examination for admission to [facility] Varicella IgG Antibody Today K76.0 - Fatty (change of) liver, not elsewhere classified, Z02.0 - Encounter for examination for admission to [facility] TDaP Immunization Today Z23 - Encounter for immunization Free T4 (Free Thyroxine) Today K76.0 - Fatty (change of) liver, not elsewhere classified Hemoglobin A1c Today K76.0 - Fatty (change of) liver, not elsewhere classified Lipid Panel Today E78.00 - Pure hypercholesterolemia, unspecified, K76.0 - Fatty (change of) liver, not elsewhere classified UA CC w/rflx Micro + Cult Today K76.0 - Fatty (change of) liver, not elsewhere classified, R30.0 - Dysuria Hepatitis B,C Profile Today K76.0 - Fatty (change of) liver, not elsewhere classified, R79.89 - Other specified abnormal findings of blood chemistry Mumps Virus IgG Antibody Today K76.0 - Fatty (change of) liver, not elsewhere classified, Z02.0 - Encounter for examination for admission to [facility] Rubella IgG Antibody Today K76.0 - Fatty (change of) liver, not elsewhere classified, Z02.0 - Encounter for examination for admission to [facility]
--- OUTSIDE RECORDS SUMMARY | 2025-01-11 10:51 | XMS_ITS ---
Author Name [facility] Organization Unknown Encounters Encounter Type Encounter Reason Primary Diagnosis Location Date Ambulatory [facility] [place] 10/25/2023 Ambulatory [facility] [place] 09/28/2023
--- OUTSIDE RECORDS SUMMARY | 2025-01-11 10:51 | XMS_ITS | Clinical Summary ---
Author Organization [address] [place] [address] [place] [phone] Phone Care Team Providers Care Manager Practice Name Role Phone Ralph Griffin MD Primary Care Provider [phone] Allergies No known active allergies Medications semaglutide (Wegovy) 0.5 mg/0.5 mL injection penIndications:C lass 2 obesity due to excess calories with body mass index (BMI) of 38.0 to 38.9 in adult, unspecified whether serious comorbidity present Inject 0.5 mg under the skin every 7 (seven) days. 4 mL 12/27/2024 Active Encounters Date Type Department Care Team Description 12/27/2024 8:30 AM EDT Consult Bariatric Surgery - [address] [address] Sofía Nunez PA Class 2 obesity due to excess calories with body mass index (BMI) of 38.0 to 38.9 in adult, unspecified whether serious comorbidity present (Primary Dx) from Last 3 Months Social History Tobacco Use Types Packs/Day Years Used Date Smoking Tobacco: Never Assessed Sex and Gender Information Value Date Recorded Sex Assigned at Male 12/20/2024 11:29 AM EDT Legal Sex Male 2:39 PM EDT Gender Identity Male 12/20/2024 11:29 AM EDT Sexual Orientation Straight 12/20/2024 11 :29 AM EDT Last Filed Vital Signs Vital Sign Reading Time Taken Comments Blood Pressure 126/81 12/27/2024 8:33 AM EDT Pulse 61 12/27/2024 8:33 AM EDT Temperature - - Respiratory Rate - - Oxygen Saturation - - Inhaled Oxygen Concentration - - Weight 123 kg (271 lb) 12/27/2024 8:33 AM EDT Height 177.8 cm (5' 10 ) 12/27/2024 8:33 AM EDT Body Mass Index 38.88 12/27/2024 8:33 AM EDT Plan of Treatment Upcoming Encounters Date Type Department Care Team (Late st Contact Info) Description 05/09/2025 9:15 AM EST Office Visit Bariatric Surgery - [place] [address] [facility] [address] [place] [phone] Sofía Nunez PA [address] [facility] [address] [place] [address] Health Maintenance Due Date Last Done Comments DTaP,Tdap,and Td Vaccines (7 - Td or Tdap) 12/15/2009 12/16/1999, 03/06/1994, 02/03/1991, Additional history exists COVID-19 Vaccine () 01/24/2024 01/16/2021, 12/26/2020 Depression Screening 05/25/2024 Cholesterol Screening (Lipid Panel) 09/13/2024 HIV Screening 09/13/2024 Hepatitis C Screening 09/13/2024 Social Influencers of Health Screening 09/13/2024 Influenza Vaccine (#1) 2025 HIB Vaccines Completed 08/05/1990 IPV Vaccines Completed 03/06/1994, 07/23, 1989, Additional history exists MMR Vaccines Completed 03/06/1994, 04/01/1990 Hepatitis A Vaccines Completed 02/10/2011, 08/23/19 06 Hepatitis B Vaccines Completed 04/05/2017, 12/16/2016, 11/16/2016, Additional history exists HPV Vaccines Aged Out No longer eligi ble based on patient's age to complete this topic Meningococcal ACWY Vaccine Aged Out N o longer eligible based on patient's age to complete this topic Meningococcal B Vaccine Aged Out No l onger eligible based on patient's age to complete this topic Pneumococcal Vaccine: Pediatrics (0 to 5 Years) and At-Risk Patients (6 to 49 Years) Aged Out No longer eligible based on patient's age to complete this topic RSV Immunization Patients Under 20 months Aged Out No longer eligible based on patient's age to complete this topic Varicella Vaccines Aged Out No longer eligible based on patient's age to complete this topic [facility] Care Teams Manager Practice Relationship Specialty Start Date End Date Ralph Griffin MD [address] [place] [address] [address] [facility] [place] [address] PCP - General Internal Medicine 09/12/24
== END 2025-01-11 10:43 | disposition home or self-care (01) ==
LOC: HO.HMCH 09:56
PROVIDERS: PCP Internal Medicine; Visit Provider Internal Medicine
DX: I10 Essential (primary) hypertension (principal); E66.9 Obesity, unspecified; Z68.36 Body mass index [BMI] 36.0-36.9, adult; K21.9 Gastro-esophageal reflux disease without esophagitis; K76.0 Fatty (change of) liver, not elsewhere classified; Z98.890 Other specified postprocedural states; Z23 Encounter for immunization

== ENCOUNTER → 2025-01-11 09:55 | Outpatient (BNVA) | payer OTHER, MEDICAID, SELFPAY | PROVIDERS: PCP Internal Medicine; Visit Provider Internal Medicine | DX: K21.9 Gastro-esophageal reflux disease without esophagitis (principal); K76.0 Fatty (change of) liver, not elsewhere classified; E66.9 Obesity, unspecified; I10 Essential (primary) hypertension; Z23 Encounter for immunization; Z98.890 Other specified postprocedural states; Z68.36 Body mass index [BMI] 36.0-36.9, adult | CPT/HCPCS: 90471; 90715; 96127 ==

== ENCOUNTER 2025-02-01 09:14 | Outpatient (REF) | payer OTHER, MEDICAID, SELFPAY ==
[2025-02-01 09:38] LABS: MANUAL DIFF FLAG NO
[2025-02-01 10:37] LABS: Hematocrit 43.4 % (42.0-52.0); Hemoglobin 15.2 g/dl (14.0-18.0); Imm Gran Abs Auto 0.02 X10*3/uL (0.00-0.03); Imm Gran Pct Auto 0.3 % (0.0-0.4); Lymphocytes Absolute Auto 1.8 X10*3/uL (1.2-4.9); Mean Corpuscular HGB Conc 35.0 g/dl (31.0-36.0); Mean Corpuscular Hemoglobin 30.7 pg (27.0-33.0); Mean Corpuscular Volume 87.7 fL (80.0-98.0); NRBC Abs Auto 0.000 X10*3/uL (0.0-0.012); NRBC Pct Auto 0.0 /100WBC (0.0-0.2); Platelet Count 228 X10*3/uL (160-400); Red Blood Count 4.95 X10*6/uL (4.60-5.80); White Blood Count 7.4 X10*3/uL (4.8-10.8)
[2025-02-01 10:51] LABS: Hemoglobin A1C 107.0730 umol/L; Total Hemoglobin (HGBA1C) 3951.2224 umol/L
--- OUTSIDE RECORDS SUMMARY | 2025-02-01 11:00 | XMS_ITS | Clinical Summary ---
Author Organization [address] [facility] Address [address] [place] [address] Phone Care Team Providers Care Open Developer Operator Name Role Phone Ralph Griffin MD Primary Care Provider Allergies No known active allergies Medications semaglutide (Wegovy) 1 mg/0.5 mL injection pen Inject 1 mg under the skin every 7 (seven) days. 2 mL 5 02/12/20 25 Active semaglutide (Wegovy) 0.5 mg/0.5 mL injection penIndications: Class 2 obesity due to excess calories with body mass index (BMI) of 38.0 to 38.9 in adult, unspecified whether serious comorbidity present Inject 0.5 mg under the skin every 7 (seven) days. 4 mL 5 01/12/20 25 Discontinued Encounters Date Type Department Care Team Description 12/27/2024 8:30 AM EDT Consult Bariatric Surgery - [address] [place] [address] Sofía Nunez PA Class 2 obesity [...] AM EST Office Visit Bariatric Surgery - [address] [place] [address] Sofía Nunez PA [address] [place] [phone] Health Maintenance Due Date Last Done Comments DTaP,Tdap,and Td Vaccines (7 - Td or Tdap) 12/15/2009 12/16/1999, 03/06/1994, 02/03/1991, Additional history exists Depression Screening 05/25/2024 Cholesterol Screening (Lipid Panel) 09/13/2024 HIV Screening 09/13/2024 Hepatitis C Screening 09/13/2024 Social Influencers of Health Screening 09/13/2024 COVID-19 Vaccine ( season) 2025 01/16/2021, 12/26/2020 Influenza Vaccine (#1) 2025 HIB Vaccines Completed [...] patient's age to complete this topic Insurance [employer] [id number] Care Teams Open Developer Operator Relationship Specialty Start Date End Date Ralph Griffin MD [address] [place] [address] [address] [facility] [place] [id number] PCP - General Internal Medicine 09/12/24
--- OUTSIDE RECORDS SUMMARY | 2025-02-01 11:00 | XMS_ITS | Patient Health Record ---
Author Organization [facility] Address [address] [place] [address] Care Team Providers Care Highway Worker Name Role Phone LINDA ERICKSON Primary Care Provider [phone] Allergies No Known Allergies Reason For Referral [...] of rotator cuff of left shoulder (disorder) ([id number] 09) Unspecified rotator cuff tear or rupture of left shoulder, not specified as traumatic (M75.102) Active confirmed Problem Sprain of medial collateral ligament of right knee, sequela (S83.411S) Active confirmed Problem History of nicotine dependence (14878102802299 9101) History of nicotine dependence (Z87.891) Active confirmed Problem Cannabis dependence (91170793) Cannabis dependence (F12.20) Active confirmed Problem Morbid obesity (370132247) Morbid obesity with body mass index of 40.0-49.9 (E66.01) Active confirmed Problem Late effect of fracture of upper extremities (55072715) Closed nondisplaced fracture of acromial end of [...] HEPATITIS PANEL, ACUTE W/REFLEX TO CONFI RMATION (12172) 10/17/2021 COMPREHENSIVE METABOLIC PANEL (78331) Insurance Providers Payer Name Payer Address Payer Phone Subscriber Number Group Number Insured Name Patient Relationship to Insured Coverage Start Date Coverage End Date [facility] [address] [address] [place] [phone] [id number] YASIR MOYA Self - patient is the insured Medical (General) History Medical History History ICD Code Unspecified rotator cuff tea r or rupture of left shoulder, not specified as traumatic M75.102 History of nicotine dependence Z87.891 Cannabis dependence F12.20
[2025-02-01 11:26] LABS: HBS Num1 > 1000.00 mIU/mL (0-7.99); HBc Num1 0.05 S/CO (0.00-0.79); HBsAGNum1 0.46 S/CO (0.00-0.99); Hepatitis B Surface Antigen Negative (Negative); ~HepC Num1 0.08 S/CO (0.00-0.79); ~Hepatitis B Surface Antibody REACTIVE (Nonreactive); ~Hepatitis C Antibody Nonreactive (Nonreactive)
[2025-02-01 11:28] LABS: Alanine Aminotransferase 39 U/L (0-40); Albumin Level 4.8 g/dL (3.5-5.0); Alkaline Phosphatase 63 U/L (39-117); Anion Gap 13 (12-20); Aspartate Amino Transferase 33 U/L (5-37); Blood Urea Nitrogen 10 mg/dL (9-16); Calcium 9.4 mg/dL (8.4-10.2); Carbon Dioxide 27 mmol/L (22-29); Chloride 107 mmol/L (96-108); Cholesterol 104 mg/dL (<200); Estimated Glomerular Filt Rate > 60; HDL Cholesterol 36 mg/dL (>40); Potassium 4.2 mmol/L (3.3-5.1); Sodium 143 mmol/L (135-145); Total Protein 7.6 g/dL (6.5-8.0); Triglycerides 57 mg/dL (<150)
[2025-02-01 11:29] LABS: Free T4 (Free Thyroxine) 0.97 ng/dL (0.71-1.85); Thyroid Stimulating Hormone 2.05 uIU/mL (0.32-4.0)
[2025-02-01 11:39] LABS: Folate 4.5 ng/mL (> or = 4.0); Vitamin B12 857 pg/mL (200-900)
[2025-02-01 12:03] LABS: Appearance Urine Clear; Glucose Urine UA Negative (Negative); PH 5.5 (5.0-9.0); Specific Gravity - Urine >= 1.030 (1.005-1.025)
[2025-02-02 09:23] LABS: Rubeola IgG (Measles) 56.90 AU/mL
[2025-02-04 03:48] LABS: TS Negative Control Passed; TS Panel A 0; TS Panel B 0; TS Positive Control Passed; TSpotTB Negative (Negative)
== END 2025-02-01 09:15 | disposition home or self-care (01) ==
LOC: HO.LAB 09:14
PROVIDERS: PCP Internal Medicine; Visit Provider Internal Medicine
DX: K76.0 Fatty (change of) liver, not elsewhere classified (principal); R79.89 Other specified abnormal findings of blood chemistry; E78.00 Pure hypercholesterolemia, unspecified; R30.0 Dysuria; Z02.0 Encounter for examination for admission to educational institution; Z11.1 Encounter for screening for respiratory tuberculosis
CPT/HCPCS: 36415; 80053; 80061; 81003; 82607; 82746; 83036; 84439; 84443; 85025; 86481; 86704; 86706; 86735; 86762; 86765; 86787; 86803; 87340